=== PATIENT | female | born 1980 | race Caucasian/White ===

== ENCOUNTER 2017-06-07 13:16 | Emergency (ER) | payer MEDICAID, SELFPAY ==
[2017-06-07 13:19] VITALS: BP 121/77; PULSE 75; RESP 16; TEMP 36.2; O2SAT 100; BMI 59.4
--- NOTE | 2017-06-07 14:01 | RAD_ITS ---
STUDY: X-RAY CHEST REASON FOR EXAM: Female, 36 years old. Shortness of breath. Dyspnea. Stage IV cervical cancer and metastases to bone. TECHNIQUE: AP upright portable view. COMPARISON: None. FINDINGS: The lungs are clear and expanded. There is no demonstrated pleural abnormality. Normal size heart. Normal mediastinum and cristóbal. Normal visualized pulmonary arteries. Normal visualized aortic arch and descending thoracic aorta. Right lateral marginal spurring along the thoracic spine. Normal visualized ribs, clavicles, and shoulders. There is no demonstrated abnormality of the visualized soft tissue structures of the upper abdomen. RAD/Chest 1 View (Portable) IMPRESSION: No acute cardiopulmonary pathology. Electronically Signed: Rakan Sheriff MD at 15:24 EST , Service support ,
--- NOTE | 2017-06-07 14:01 | CT_ITS ---
STUDY: CT BRAIN WITHOUT CONTRAST REASON FOR EXAM: Female, 36 years old. Headache with stage IV cervical cancer. RADIATION DOSAGE (If Supplied By Facility): CTDIvol = ( 44.99 ) mGy, DLP = ( 779.24 ) mGycm TECHNIQUE: Transaxial CT imaging of the brain was performed without administration of intravenous contrast material. Coronal and sagittal reconstructions were also performed. Individualized dose optimization techniques were used for this CT. COMPARISON: None. FINDINGS: Normal soft tissue structures. Normal calvarium. Extensive vasogenic edema in the left frontal lobe white matter secondary to a probable 3.3 cm intra-axial mass in the left frontal lobe convexity. This is causing 7.4 mm [id number] midline shift. No other suspicious areas of vasogenic edema. Normal basal ganglia and thalami. Normal brainstem. Normal cerebellum. There is no intracranial hemorrhage. There are no findings of an acute ischemic infarction. Normal visualized paranasal sinuses. CT/Brain/Head without Contrast IMPRESSION: 1. Extensive vasogenic edema in the left frontal white matter is most likely secondary to at least 1 brain mass in the left frontal lobe convexity causing 7.4 mm [id number] midline shift. Solitary brain metastatic mass versus primary malignant brain neoplasm. Contrast CT or MRI of the brain with contrast will help. 2. No CT evidence of intracranial bleeding or acute ischemic infarct. Electronically Signed: Rakan Sheriff MD at 15:07 EST , Service support ,
--- NOTE | 2017-06-07 14:05 | ED.VISSUMM ---
- ER Visit Summary Date of Service: 06/07/17 Chief Complaint: [] Headache for about 2 weeks history of metastatic cervical cancer History of Present Illness: The patient is a 36 F [] static cervical cancer, she has metastasis to her anterior abdominal lymph nodes she reports, and lungs she completed chemotherapy and radiation therapy a few months ago her med port was removed she was told her cancer was stable not cured and she would need continued monitoring. For the last 2 weeks she has had intermittent frontal type headaches that come and go she has had no fever no cough no rhinorrhea she is not prone to headaches she has had no loss of function no change in mental status, she is scheduled to see her oncologist Dr. vora tomorrow and she was instructed to come to the emergency department. She is eating and drinking without difficulty her bowel bladder habits have been unremarkable neurologic function has been stable unchanged Physical Examination: [] Resting cupping the bed she is in no distress she is awake and alert sitting in a brightly lit room her neck is very supple HEENT exam is unremarkable cranial nerves are normal the lungs are diminished heart tones are distant abdomen is very obese but soft nontender upper lower extremities are generally unremarkable she is moving all 4 extremities her neurologic exam showscranial nerve no motor no cerebellar or sensory or visual field abnormality Test Results: [] Emergency Department Course and Treatment: [] Right IV fluids therapy head CT screening labs The patient's head CT shows at least one lesion left frontal with about 7.5 mm of edema and shift no bleeding, the rest of the patient's labs are generally unremarkable Logically she remains awake and alert stable no neurologic abnormalities. I spoke with Dr. NATALI AGUDELO secondary social studies teacher for her oncologist we discussed the case in detail including the results of the CT, oncology felt she could safely be admitted to [facility] with MRI in the morning, consultation to oncology high-dose steroids and consultation to radiation therapy. I spoke with Dr. Cruz secondary social studies teacher for the hospitalist service, discussed the case with him in detail including my conversation with the oncologist who felt the patient could be managed at [facility] we did discuss the shift and the oncologist is aware, however Dr. Cruz he stated he did not feel the patient could be admitted to [facility], he refused to admit her to his service he recommended that the patient could be admitted directly by the oncologist or transfer to a tertiary care center. I discussed this with the patient they are agreeable to transfer to [facility] where they been seen in the past we will make those arrangements I did speak with the [facility] of the accept the patient in transfer to the service of Dr. Pedro Treatment Plan: [] Disposition: [] Transfer to [facility] Impression: [] Metastatic cervical cancer, left frontal brain mass likely metastasis with edema see above, transferred to [facility] This note was generated with [employer] dictation software. It may contain incorrect words, spelling, and punctuation that were not noted in review of the chart prior to signing ED Disposition - Plan for ED Patient: Chief Complaint: Headache Referrals: Gio Tubbs MD [Primary Care Provider] -
[2017-06-07] MEDS: proCHLORPERazine 10 MG/2 ML Vial IV (15:00)
[2017-06-07] MEDS: DiphenhydrAMINE 50 MG/ML Syringe 25 MG IV (15:00)
[2017-06-07 15:31] LABS: Anion Gap 10 (5-15); BUN 26 mg/dL (7-18); BUN/Creat Ratio 23.4 RATIO (10-20); Calcium,Total 9.3 mg/dL (8.5-10.1); Chloride 107 mmol/L (98-107); Creatinine, Serum 1.11 mg/dL (0.55-1.02); EST Glomerular Filtration Rate 59 mL/min (>60); Est Glom Filt Rate - Afr Amer 72 mL/min (>60); Estimated Creatinine Clearance 55.95 ml/min; Glucose 79 mg/dL (70-110); Potassium 4.3 mmol/L (3.5-5.1); Sodium Level 141 mmol/L (136-145)
[2017-06-07 15:48] LABS: Absolute Lymphocyte Count 1.49 X10^3/ul (0.83-4.51); Absolute Neutrophil Count 7.3 X10^3/uL (2.0-7.7); Basophil# 0.03 X10^3/uL; Basophil% 0.3 % (0-1); Eosinophil# 0.12 X10^3/uL; Eosinophils% 1.2 % (0-5); Hematocrit 37.6 % (37-47); Hemoglobin 11.9 g/dl (12.0-15.0); Lymphocyte # 1.49 X10^3/ul (4.0); Lymphocyte % 15.5 % (19-41); Mean Corp Hgb Conc 31.6 g/gl (32-36); Mean Corpuscular Hgb 26.9 pg (27.0-32.0); Mean Corpuscular Volume 84.9 fL (81-99); Mean Platelet Vol. 9.7 fl (6.2-12.0); Monocyte# 0.61 X10^3/uL; Monocyte% 6.3 % (0-10); Neutrophil # 7.34 X10^3/uL (2.7-7.7); Neutrophil % 76.4 % (47-70); Platelet Count 342 K/mm3 (150-450); RBC Distribution Width CV 16.4 % (11.6-14.6); RBC Distribution Width SD 51.4 fl (35.1-43.9); Red Blood Count 4.43 M/mm3 (4.2-5.4); White Blood Count 9.6 K/mm3 (4.4-11.0)
[2017-06-07 15:55] LABS: POSITIVE COUNT NO; POSITIVE DIFFERENTIAL NO; POSITIVE MORPHOLOGY NO
[2017-06-07 16:13] VITALS: BP 114/75; PULSE 74; RESP 14; O2SAT 97
--- NOTE | 2017-06-07 16:53 | ED.RN ---
Updated entire family on POC. Asked ED MD if she was appropriate for transport by private car and he agreed. Sister at bedside will be able to transport her down. Appropriate forms signed. Still pending room assignment at [facility]. PT and family aware that they will be waiting here until room assignment. PT and family agree. IV will remain in place for transport.
[2017-06-07 18:25] VITALS: BP 114/72; PULSE 76; RESP 14; TEMP 36.6; O2SAT 100
== END 2017-06-07 18:10 | disposition short-term general hospital (02) ==
LOC: ED 14:15
PROVIDERS: Emergency Provider Emergency Medicine; Family Provider Family Medicine; PCP Family Medicine
DX: C53.9 Malignant neoplasm of cervix uteri, unspecified (principal); G93.9 Disorder of brain, unspecified; G93.6 Cerebral edema; C77.2 Secondary and unspecified malignant neoplasm of intra-abdominal lymph nodes; C78.02 Secondary malignant neoplasm of left lung; C78.01 Secondary malignant neoplasm of right lung; R51 Headache; Z79.899 Other long term (current) drug therapy; Z92.3 Personal history of irradiation; Z92.21 Personal history of antineoplastic chemotherapy
CPT/HCPCS: 70450; 71045; 80048; 85025; 96374; 96375; 99284; J7050

== ENCOUNTER 2017-07-27 12:51 | Inpatient (IN) | payer MEDICAID, SELFPAY ==
[2017-07-27 12:52] VITALS: BP 162/106; PULSE 113; RESP 18; TEMP 36.1; O2SAT 97; BMI 60.0
[2017-07-27 13:05] VITALS: BP 110/82; PULSE 105; RESP 16; O2SAT 97
--- NOTE | 2017-07-27 13:11 | CT_ITS ---
STUDY: CT LUMBAR SPINE WITHOUT CONTRAST REASON FOR EXAM: Female, 37 years old. History of cervical carcinoma with bone metastasis. Low back pain and left hip pain. Recent fall. RADIATION DOSAGE (If Supplied By Facility): CTDIvol = ( 49.59 ) mGy, DLP = ( 2697.04 ) mGycm TECHNIQUE: The patient was scanned in a multi detector CT scanner. High resolution transaxial imaging was performed. Images were obtained from L1 to S1 level. Sagittal and coronal images were reconstructed. Individualized dose optimization techniques were used for this CT. COMPARISON: None FINDINGS: Normal lumbar lordosis. There is no substantial scoliosis. Normal vertebrae of the lumbar spine. L1-2: Mild degree of interspace narrowing and mild anterior spondylosis. L2-3: Normal endplates. Normal disc height and morphology. Normal bilateral facet joints. Normal central canal and bilateral lateral recesses. Normal bilateral intervertebral neural foramina. L3-4: Mild degree of disc space narrowing. Facet joint osteoarthritis and hypertrophy. L4-5: Normal endplates. Normal disc height and morphology. Normal bilateral facet joints. Normal central canal and bilateral lateral recesses. Normal bilateral intervertebral neural foramina. L5-S1: There is erosion of the transverse processes of the L5 vertebrae. There is evidence of soft tissue mass and destruction of the left iliac bone as well as the left sacral alar. CT/Spine Lumbar without Contrast IMPRESSION: Large soft tissue mass which is incompletely visualized causing destruction of the left iliac bone and partial destruction of the left sacral wing. Electronically Signed: Pro Chery MD at 14:48 EDT Tel [phone], Service support ,
--- NOTE | 2017-07-27 13:11 | VDLE_ITS ---
Reason For Study: LEG PAIN Procedure LEFT Exam performed portable in ED. GSV is normal. Technically limited/difficult due to body CFV is compressible, spontaneous, phasic, habitus. competent, and demonstrates normal A preliminary report was called and/or faxed augmentation. to Dr. Melo. FV is compressible, spontaneous, phasic, competent and demonstrates normal augmentation. POP V is compressible, spontaneous, phasic, competent and demonstrates normal augmentation. T/P Trunk is compressible. PTV is compressible. Interpretation Summary Deep veins of the left lower extremity are patent and compressible segmentally. There is no evidence of left lower extremity deep vein thrombosis. Valvular competence appears intact within the proximal deep venous system on the left . The left greater saphenous vein appears patent and compressible segmentally. Ordering Physician: Negrito Melo Performed By: Yelena Jones RVT
--- NOTE | 2017-07-27 13:15 | ED.DCSUM_ITS ---
- ER Visit Summary Date of Service: 07/27/17 Chief Complaint: Left knee pain/swelling, lower back pain History of Present Illness: The patient is a 37 F who presents with the above symptoms. This is been ongoing for 2 weeks. She had an injury of the left knee a couple weeks ago. She states that her left leg gave out at the hospital that she was out having a brain tumor removed. She continued to have pain so she went to another emergency department and had a negative x-ray and was told to take [place] and her home morphine. She continues to have pain and swelling of the left leg. She is unable to ambulate. She now has pain in the lower back. They stated that she does have some urinary incontinence. She has not had a fever. Tried calling for an outpatient MRI but this has not been scheduled yet. Has a history of ovarian cancer with bony metastases to the left hip and to the brain. They are here today because they want answers. Physical Examination: This is an obese female who weighs 150 kg. HEENT exam unremarkable. Heart is regular. Lungs are clear. Abdomen soft nontender. Back exam reveals lumbar spinal tenderness. Left leg exam reveals diffuse swelling. There is no knee tender to palpation. Skin is of normal color. Her neurologic exam is at baseline Test Results: Ultrasound reveals no DVT. CT of the lumbar spine reveals destruction of the left iliac wing from a metastases which is known to the patient Emergency Department Course and Treatment: She was treated with morphine here. Her imaging studies do not reveal anything acute. There is no evidence of any lumbar spine impingement. At this point the patient has no acute findings. I feel she can be discharged to home. However, she is concerned about this because of the amount of pain that she is having. I will speak with the social welfare research worker who will help her get a plan for home care. She has opiates at home for pain control. Treatment Plan: [] Disposition: Discharge, after social work evaluation Impression: Back pain, left leg pain, stage IV ovarian cancer, morbidly obese This note was generated with [employer] dictation software. It may contain incorrect words, spelling, and punctuation that were not noted in review of the chart prior to signing ED Disposition - Plan for ED Patient: Chief Complaint: Lower Extremity Injury Referrals: Gio Tubbs MD [Primary Care Provider] -
[2017-07-27] MEDS: morphine 8 MG/ML Syringe SC (13:24)
--- NOTE | 2017-07-27 15:25 | ED.DEP ---
ED Disposition - Plan for ED Patient: Disposition: Home or Assisted Living Chief Complaint: Lower Extremity Injury Instructions: ED Back Care Tips Referrals: Gio Tubbs MD [Primary Care Provider] -
--- NOTE | 2017-07-27 16:24 | CM.ED ---
Patient states that she is unable to ambulate, even with walker. Family states she uses a sheet cradle to lift her leg. Family states she has fallen four times in the past two weeks. According to the family, the patient is awaiting authorization from insurance to have an MRI ordered by her PCP and was told this could take a month. Family states home health would not be enough help and express concerns for patient's safety if discharged to home. Patient and family are agreeable with seeking temporary placement in a halfway home. CM informed patient and family that social media content specialist will meet with patient tomorrow and begin authorization process. ED care team updated. SW/CM will continue to follow for safe discharge planning.
[2017-07-27 16:45] VITALS: BMI 60.0
[2017-07-27 17:08] VITALS: BP 143/98; PULSE 98; RESP 20; O2SAT 95
--- NOTE | 2017-07-27 17:21 | PCM.HP.STD ---
<Tammie Villela - Last Filed: 07/27/17 17:41> Problem List (1) Cervical cancer Status: Chronic (2) Cervical cancer, FIGO stage IVB Status: Chronic (3) Hypoalbuminemia Status: Chronic (4) Hydronephrosis Status: Resolved (5) Brain metastases Status: Resolved (6) Depression Status: Chronic (7) Overactive bladder Status: Chronic History of Present Illness Date of Admission: 07/27/17 Chief Complaint: Left leg pain, inability to ambulate, frequent falls. The patient is a 37 year old F who presents to the emergency room due to left leg pain and swelling, back pain and unable to ambulate. Patient states she has fallen approximately 4 times in the past week due to left leg weakness. She is now unable to even lift left leg off of bed during assessment. Patient has had symptoms of weakness and left leg pain for months, however they have gotten worse in the past week. Patient is undergoing radiation for stage IV cervical cancer in which she was originally diagnoses about one year ago, her last radiation treatment was last , 07/23/2017. She sees Dr. Gross. Patient states she has metastasis to brain status post brain tumor removal at [facility], lung metastasis and questionable left hip. Patient's most recent PET scan was December 2016. Her other past medical history includes depression and recent diagnosis of overactive bladder. She states she has been incontinent of urine. She denies other associated complaints. Past Medical History Past Medical History (Chronic Problems): Chronic Problems (Last Updated 06/24/17 @ 13:17 by Armida Ortiz) Cervical cancer (Chronic) Cervical cancer, FIGO stage IVB (Chronic) Hypoalbuminemia (Chronic) Depression (Chronic) Overactive bladder (Chronic) Allergies No Known Allergies Allergy (Verified 07/27/17 12:54) Home Medications: Ambulatory Orders Medication Instructions Recorded Acetaminophen [Tylenol] 500 mg PO Q6H PRN PRN 05/19/17 Dexamethasone [Decadron] 4 mg PO BIDCM 07/27/17 Docusate Sodium [Dok] 100 mg PO DAILY 07/27/17 Hydrocodone/Acetaminophen [[place] 5 mg PO Q6H PRN PRN 07/27/17 5-325 Tablet] Mirabegron [Myrbetriq] 25 mg PO DAILY 07/27/17 Mirtazapine [Remeron] 15 mg PO QHS 07/27/17 Morphine Sulfate [Morphabond ER] 30 mg PO Q8H PRN PRN 07/27/17 Surgical History: - - Brain tumor resection, port placement and removal of port device. Psychiatric History: Depression SKIAGRAPHER History: cervical cancer Smoking Status: Never smoker Alcohol: None Drugs: None - *Family History Maternal History Items: Diabetes, - - ALS, questionable uterine mass which was not further investigated given advanced ALS. Paternal History Items: High Cholesterol, Hypertension Review of Systems Constitutional: Denies: Chills, Fever, Weight Change HEENT: Denies: Head Aches, Sinus Congestion, Sinus Drainage Cardiovascular: Denies: Chest Pain, Palpitations Respiratory: Denies: Cough, Shortness of breath at rest, Sputum production Gastrointestinal: Reports: Constipation. Denies: Abdominal Pain, Nausea, Vomiting Genitourinary: Reports: Incontinence. Denies: Dysuria, Hematuria Musculoskeletal: Reports: Back Pain, Leg Pain - Left Skin: Reports: Rash - groin, abdominal folds. Neurological: Reports: - - Numbness and weakness of LLE. Psychiatric: Reports: Depression Hematologic/ Lymphatic: Denies: Easy Bruising, Easy Bleeding VTE Information - Inpt Only VTE Present on Admission: No VTE Mechan Device Prophylaxis: None VTE Pharm Prophylaxis ordered?: Yes Patient Problems: Active and Suspected Problems (Last Updated 06/24/17 @ 13:17 by Armida Ortiz) Mass of pelvis (Acute) Left hip pain (Acute) - Physical Exam General: Alert, Oriented x3, Cooperative, No apparent distress HEENT: Atraumatic, PERRLA, EOMI, Normocephalic Neck: Supple, No JVD, Negative Carotid Bruits Lungs: Clear to auscultation, Diminished Cardiovascular: Regular rate, Regular Rhythm, Normal S1, Normal S2, No murmurs Abdomen: Bowel Sounds Present, Soft, Non Tender, Non-Distended, Obese Extremities: No clubbing, No cyanosis, Capillary Refill Less than 3 Seconds, Edema - LLE Skin: - - Erythema, yeast appearing rash abdominal/pannus folds. Musculoskeletal: Tenderness - LLE Neurological: Cranial nerves II-XII grossly intact, Neuro grossly intact Psych/Mental Status: Normal Affect, Appropriate Vital Signs Temp Pulse Resp BP Pulse Ox 96.9 F L 98 20 H 143/98 H 95 07/27/17 12:52 07/27/17 17:08 07/27/17 17:08 07/27/17 17:08 07/27/17 17:08 Oxygen Delivery Method Room Air Weight: 148.778 kg Body Mass Index (BMI) 60.0 Assessment/Plan Active and Suspected Problems (Last Updated 06/24/17 @ 13:17 by Armida Ortiz) Mass of pelvis (Acute) Left hip pain (Acute) 1. Left lower extremity weakness/pain, physical debility, frequent falls-Duplex US negative DVT LLE. Obtain CT of left hip. Patient reports questionable history of metastasis to left hip. Fall precautions. PT/OT. Continue home pain regimen PRN. CM working on SNF placement. 2. Stage IV cervical cancer-history of metastasis to brain, lungs and questionable left hip. Follows with Dr. Gross. Last radiation 07/23/17. Consult oncology. Continue home Decadron regimen. 3. Candidiasis of skin abdominal/groin folds- Nystatin powder. Keep areas clean and dry. 4. Overactive bladder-continue myrbetriq. 5. Depression-continue Remeron regimen. DVT [id number] Lovenox. This patient was seen by MIRIAN Kaufman under the supervision of Dr. Ram. <Adams Ram - Last Filed: 07/27/17 18:02> Problem List (1) Mass of pelvis Status: Acute (2) Left hip pain Status: Acute (3) Cervical cancer, FIGO stage IVB Status: Chronic (4) Hypoalbuminemia Status: Chronic (5) Depression Status: Chronic (6) Overactive bladder Status: Chronic History of Present Illness The patient is a 37 year old F presents with progressive weakness. Patient is having pain and difficulty lifting her left leg up. Patient was seen in the emergency room and MRI of her lumbar spine that showed limited view of the pelvic mass. Patient and family state pelvic mass is actually not a new thing but been chronic but apparently is getting bigger. He did do a duplex of lower extremities showed no DVT. Patient was evaluated by case management in the emergency room for facilitating placement but that is that there would not be able to facilitate anything today so patient is being brought under observation to have that facilitated. [] Past Medical History Allergies No Known Allergies Allergy (Verified 07/27/17 12:54) Surgical History: - Psychiatric History: Depression SKIAGRAPHER History: cervical cancer Smoking Status: Never smoker Alcohol: None Drugs: None - *Family History Maternal History Items: Diabetes, - Paternal History Items: High Cholesterol, Hypertension Review of Systems Constitutional: Denies: Chills, Fever, Weight Change HEENT: Denies: Head Aches, Sinus Congestion, Sinus Drainage Cardiovascular: Denies: Chest Pain Respiratory: Denies: Cough, Shortness of breath at rest, Sputum production Gastrointestinal: Reports: Constipation. Denies: Abdominal Pain, Nausea, Vomiting Genitourinary: Reports: Incontinence. Denies: Dysuria, Hematuria Musculoskeletal: Reports: Back Pain, Leg Pain Skin: Reports: Rash Neurological: Reports: - Psychiatric: Reports: Depression Hematologic/ Lymphatic: Denies: Easy Bruising, Easy Bleeding VTE Information - Inpt Only VTE Present on Admission: No VTE Mechan Device Prophylaxis: None VTE Pharm Prophylaxis ordered?: Yes - Physical Exam General: Alert, Oriented x3, Cooperative, No apparent distress HEENT: Atraumatic, Normocephalic Neck: Supple, No JVD, Negative Carotid Bruits Lungs: Clear to auscultation, Diminished Cardiovascular: Regular rate, Regular Rhythm, Normal S1, Normal S2, No murmurs Abdomen: Bowel Sounds Present, Soft, Non Tender, Non-Distended, Obese Extremities: No cyanosis Skin: - Musculoskeletal: No Muscle Wasting, Tenderness Neurological: - - Diminished sensation of the left lower extremity. Unable to actively flex the left hip. 5 out of 5 dorsiflexion of the great toe and 5 out of 5 plantar flexion of the left foot. Psych/Mental Status: Normal Affect, Appropriate Vital Signs Temp Pulse Resp BP Pulse Ox 36.1 C L 98 20 H 143/98 H 95 07/27/17 12:52 07/27/17 17:08 07/27/17 17:08 07/27/17 17:08 07/27/17 17:08 Oxygen Delivery Method Room Air Weight: 148.778 kg Body Mass Index (BMI) 60.0 Assessment/Plan Seen and examined independently. Agree with the above note by the nurse practitioner. 1. Left lower extremity weakness and pain Likely due to the pelvic mass. Pelvis pelvic mass is been present previously. Concerns have there is any nerve involvement given the patient's pain and inability to flex her left hip. Will check a CAT scan to better evaluate this. Optimize pain control Given the patient's pain and debility, patient will be seen by physical and Occupational Therapy. 2. Left pelvic mass In the pelvis itself. As above check a CAT scan. 3. Stage IV cervical cancer Patient's currently in between treatments at this time. Patient will need a follow-up with Dr. Gross Would not pursue any aggressive diagnosis of the pelvic mass as patient already has documented stage IV cervical cancer Further goals of care would need to be addressed through her oncologist. Code Visit OBSV E&M: 11937 Initial observation care L3
--- NOTE | 2017-07-27 17:31 | HP.PCM_ITS ---
<Tammie Villela - Last Filed: 07/27/17 17:41> Problem List (1) Cervical cancer Status: Chronic (2) Cervical cancer, FIGO stage IVB Status: Chronic (3) Hypoalbuminemia Status: Chronic (4) Hydronephrosis Status: Resolved (5) Brain metastases Status: Resolved (6) Depression Status: Chronic (7) Overactive bladder Status: Chronic History of Present Illness Date of Admission: 07/27/17 Chief Complaint: Left leg pain, inability to ambulate, frequent falls. The patient is a 37 year old F who presents to the emergency room due to left leg pain and swelling, back pain and unable to ambulate. Patient states she has fallen approximately 4 times in the past week due to left leg weakness. She is now unable to even lift left leg off of bed during assessment. Patient has had symptoms of weakness and left leg pain for months, however they have gotten worse in the past week. Patient is undergoing radiation for stage IV cervical cancer in which she was originally diagnoses about one year ago, her last radiation treatment was last , 07/23/2017. She sees Dr. Gross. Patient states she has metastasis to brain status post brain tumor removal at [facility], lung metastasis and questionable left hip. Patient's most recent PET scan was December 2016. Her other past medical history includes depression and recent diagnosis of overactive bladder. She states she has been incontinent of urine. She denies other associated complaints. Past Medical History Past Medical History (Chronic Problems): Chronic Problems (Last Updated 06/24/17 @ 13:17 by Armida Ortiz) Cervical cancer (Chronic) Cervical cancer, FIGO stage IVB (Chronic) Hypoalbuminemia (Chronic) Depression (Chronic) Overactive bladder (Chronic) Allergies No Known Allergies Allergy (Verified 07/27/17 12:54) Home Medications: Ambulatory Orders Medication Instructions Recorded Acetaminophen [Tylenol] 500 mg PO Q6H PRN PRN 05/19/17 Dexamethasone [Decadron] 4 mg PO BIDCM 07/27/17 Docusate Sodium [Dok] 100 mg PO DAILY 07/27/17 Hydrocodone/Acetaminophen [Roscoe 5 mg PO Q6H PRN PRN 07/27/17 5-325 Tablet] Mirabegron [Myrbetriq] 25 mg PO DAILY 07/27/17 Mirtazapine [Remeron] 15 mg PO QHS 07/27/17 Morphine Sulfate [Morphabond ER] 30 mg PO Q8H PRN PRN 07/27/17 Surgical History: - - Brain tumor resection, port placement and removal of port device. 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 Paternal History Items: High Cholesterol, Hypertension Review of Systems Constitutional: Denies: Chills, Fever, Weight Change HEENT: Denies: Head Aches, Sinus Congestion, Sinus Drainage Cardiovascular: Denies: Chest Pain, Palpitations Respiratory: Denies: Cough, Shortness of breath at rest, Sputum production Gastrointestinal: Reports: Constipation. Denies: Abdominal Pain, Nausea, Vomiting Genitourinary: Reports: Incontinence. Denies: Dysuria, Hematuria Musculoskeletal: Reports: Back Pain, Leg Pain - Left Skin: Reports: Rash - groin, abdominal folds. Neurological: Reports: - - Numbness and weakness of LLE. Psychiatric: Reports: Depression Hematologic/ Lymphatic: Denies: Easy Bruising, Easy Bleeding VTE Information - Inpt Only VTE Present on Admission: No VTE Mechan Device Prophylaxis: None VTE Pharm Prophylaxis ordered?: Yes Patient Problems: Active and Suspected Problems (Last Updated 06/24/17 @ 13:17 by Armida Ortiz) Mass of pelvis (Acute) Left hip pain (Acute) - Physical Exam General: Alert, Oriented x3, Cooperative, No apparent distress HEENT: Atraumatic, PERRLA, EOMI, Normocephalic Neck: Supple, No JVD, Negative Carotid Bruits Lungs: Clear to auscultation, Diminished Cardiovascular: Regular rate, Regular Rhythm, Normal S1, Normal S2, No murmurs Abdomen: Bowel Sounds Present, Soft, Non Tender, Non-Distended, Obese Extremities: No clubbing, No cyanosis, Capillary Refill Less than 3 Seconds, Edema - LLE Skin: - - Erythema, yeast appearing rash abdominal/pannus folds. Musculoskeletal: Tenderness - LLE Neurological: Cranial nerves II-XII grossly intact, Neuro grossly intact Psych/Mental Status: Normal Affect, Appropriate Vital Signs Temp Pulse Resp BP Pulse Ox 96.9 F L 98 20 H 143/98 H 95 07/27/17 12:52 07/27/17 17:08 07/27/17 17:08 07/27/17 17:08 07/27/17 17:08 Oxygen Delivery Method Room Air Weight: 148.778 kg Body Mass Index (BMI) 60.0 Assessment/Plan Active and Suspected Problems (Last Updated 06/24/17 @ 13:17 by Armida Ortiz) Mass of pelvis (Acute) Left hip pain (Acute) 1. Left lower extremity weakness/pain, physical debility, frequent falls- Duplex US negative DVT LLE. Obtain CT of left hip. Patient reports questionable history of metastasis to left hip. Fall precautions. PT/OT. Continue home pain regimen PRN. CM working on SNF placement. 2. Stage IV cervical cancer-history of metastasis to brain, lungs and questionable left hip. Follows with Dr. Gross. Last radiation 07/23/17. Consult oncology. Continue home Decadron regimen. 3. Candidiasis of skin abdominal/groin folds- Nystatin powder. Keep areas clean and dry. 4. Overactive bladder-continue myrbetriq. 5. Depression-continue Remeron regimen. DVT [id number] Lovenox. This patient was seen by MIRIAN Kaufman under the supervision of Dr. Ram. <Adams Ram - Last Filed: 07/27/17 18:02> Problem List (1) Mass of pelvis Status: Acute (2) Left hip pain Status: Acute (3) Cervical cancer, FIGO stage IVB Status: Chronic (4) Hypoalbuminemia Status: Chronic (5) Depression Status: Chronic (6) Overactive bladder Status: Chronic History of Present Illness The patient is a 37 year old F presents with progressive weakness. Patient is having pain and difficulty lifting her left leg up. Patient was seen in the emergency room and MRI of her lumbar spine that showed limited view of the pelvic mass. Patient and family state pelvic mass is actually not a new thing but been chronic but apparently is getting bigger. He did do a duplex of lower extremities showed no DVT. Patient was evaluated by case management in the emergency room for facilitating placement but that is that there would not be able to facilitate anything today so patient is being brought under observation to have that facilitated. 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 Denies: Abdominal Pain, Nausea, Vomiting Genitourinary: Reports: Incontinence. Denies: Dysuria, Hematuria Musculoskeletal: Reports: Back Pain, Leg Pain Skin: Reports: Rash Neurological: Reports: - Psychiatric: Reports: Depression Hematologic/ Lymphatic: Denies: Easy Bruising, Easy Bleeding VTE Information - Inpt Only VTE Present on Admission: No VTE Mechan Device Prophylaxis: None VTE Pharm Prophylaxis ordered?: Yes - Physical Exam General: Alert, Oriented x3, Cooperative, No apparent distress HEENT: Atraumatic, Normocephalic Neck: Supple, No JVD, Negative Carotid Bruits Lungs: Clear to auscultation, Diminished Cardiovascular: Regular rate, Regular Rhythm, Normal S1, Normal S2, No murmurs Abdomen: Bowel Sounds Present, Soft, Non Tender, Non-Distended, Obese Extremities: No cyanosis Skin: - Musculoskeletal: No Muscle Wasting, Tenderness Neurological: - - Diminished sensation of the left lower extremity. Unable to actively flex the left hip. 5 out of 5 dorsiflexion of the great toe and 5 out of 5 plantar flexion of the left foot. Psych/Mental Status: Normal Affect, Appropriate Vital Signs Temp Pulse Resp BP Pulse Ox 36.1 C L 98 20 H 143/98 H 95 07/27/17 12:52 07/27/17 17:08 07/27/17 17:08 07/27/17 17:08 07/27/17 17:08 Oxygen Delivery Method Room Air Weight: 148.778 kg Body Mass Index (BMI) 60.0 Assessment/Plan Seen and examined independently. Agree with the above note by the nurse practitioner. 1. Left lower extremity weakness and pain * Likely due to the pelvic mass. Pelvis pelvic mass is been present previously. Concerns have there is any nerve involvement given the patient's pain and inability to flex her left hip. * Will check a CAT scan to better evaluate this. * Optimize pain control * Given the patient's pain and debility, patient will be seen by physical and Occupational Therapy. 2. Left pelvic mass * In the pelvis itself. * As above check a CAT scan. 3. Stage IV cervical cancer * Patient's currently in between treatments at this time. Patient will need a follow-up with Dr. Gross * Would not pursue any aggressive diagnosis of the pelvic mass as patient already has documented stage IV cervical cancer * Further goals of care would need to be addressed through her oncologist. Code Visit OBSV E&M: 20368 Initial observation care L3
[2017-07-27 18:33] VITALS: BMI 61.6
--- NOTE | 2017-07-27 18:33 | CT_ITS ---
STUDY: CT PELVIS WITHOUT CONTRAST REASON FOR EXAM: Female, 37 years old. Pelvic mass on spine CT. History of cervical cancer RADIATION DOSAGE (If Supplied By Facility): DLP = ( 790.62 ) mGycm TECHNIQUE: Transaxial imaging of the pelvis was performed with oral contrast, and without intravenous administration of contrast material. Individualized dose optimization techniques were used for this CT. COMPARISON: Lumbar spine CT dated 07/27/2017. CT abdomen and pelvis dated 04/13/2017. FINDINGS: Study limited by lack of contrast and patient body habitus. The visualized bowel demonstrates no evidence of obstruction. There is a small amount of pelvic free fluid. There is extensive lymphadenopathy in the left inguinal region, left common and external iliac regions and left para-aortic region. This is not well evaluated without contrast. The largest node is in the left inguinal region and measures 4.5 x 3.1 cm. Again noted is an expansile osseous mass in the left hemipelvis which measures approximately 7.7 x 5.0 cm. This is not significantly changed when compared with the prior exam. CT/Pelvis without IV Contrast IMPRESSION: Study limited by patient body habitus and lack of contrast. New extensive lymphadenopathy in the left iliac region, left periaortic region and left inguinal region. This is suspicious for neoplasm. No significant change in the expansile osseous mass in the left hemipelvis when compared with 04/13/2017. Electronically Signed: Kayden Lemos, at 19:28 EDT Tel , Service support ,
--- NOTE | 2017-07-27 18:42 | NURSING ---
cervical cancer with mets to the lung, bone, lymph, brain.. in Jun 2017 had surgery to remove cancer from the brain..
[2017-07-27 19:32] VITALS: BP 152/95; PULSE 105; RESP 18; TEMP 36.1; O2SAT 95
[2017-07-27] MEDS: Mirtazapine 15 MG Tablet PO (21:25)
[2017-07-28 04:00] VITALS: BP 121/81; PULSE 97; RESP 18; TEMP 36.4; O2SAT 94
--- NOTE | 2017-07-28 04:00 | NURSING ---
Bedside handoff received from SHON Frances.
[2017-07-28] MEDS: Nystatin Powder 15gm Bottle 1 APPLIC TOPICAL ×3 (05:43→22:38)
[2017-07-28 06:20] LABS: Absolute Lymphocyte Count 0.82 X10^3/ul (0.83-4.51); Absolute Neutrophil Count 28.9 X10^3/uL (2.0-7.7); Basophil# 0.04 X10^3/uL; Basophil% 0.1 % (0-1); Hematocrit 32.5 % (37-47); Lymphocyte # 0.82 X10^3/ul (4.0); Lymphocyte % 2.6 % (19-41); Mean Corp Hgb Conc 30.8 g/gl (32-36); Mean Corpuscular Hgb 25.5 pg (27.0-32.0); Mean Corpuscular Volume 82.9 fL (81-99); Mean Platelet Vol. 9.1 fl (6.2-12.0); Monocyte% 5.6 % (0-10); Neutrophil # 28.91 X10^3/uL (2.7-7.7); RBC Distribution Width CV 17.3 % (11.6-14.6); Red Blood Count 3.92 M/mm3 (4.2-5.4)
[2017-07-28 06:24] LABS: Differential Indicated SCAN CRITERIA MET; POSITIVE COUNT YES; POSITIVE DIFFERENTIAL YES; POSITIVE MORPHOLOGY NO; Platelet Count 808 K/mm3 (150-450); White Blood Count 32.1 K/mm3 (4.4-11.0)
[2017-07-28 06:36] LABS: Anion Gap 12 (5-15); BUN 121 mg/dL (7-18); BUN/Creat Ratio 18.7 RATIO (10-20); Calcium,Total 9.1 mg/dL (8.5-10.1); Chloride 104 mmol/L (98-107); Creatinine, Serum 6.46 mg/dL (0.55-1.02); EST Glomerular Filtration Rate 8 mL/min (>60); Est Glom Filt Rate - Afr Amer 9 mL/min (>60); Estimated Creatinine Clearance 9.52 ml/min; Glucose 103 mg/dL (74-106); Potassium 6.2 mmol/L (3.5-5.1); Sodium Level 135 mmol/L (136-145)
[2017-07-28 06:37] LABS: Differential Comment SCANNED; Platelet Estimate MOD INC (ADEQ)
[2017-07-28 09:00] VITALS: BP 127/81; PULSE 107; RESP 16; TEMP 36.4; O2SAT 95
[2017-07-28] MEDS: Mirabegron 25 MG TAB.ER.24H PO (09:06)
[2017-07-28] MEDS: Sodium Polystyrene Sulfonate 15 GM/60 ML UDC PO (09:07)
[2017-07-28] MEDS: Enoxaparin 40 MG/0.4 ML Syringe SC (09:11)
--- NOTE | 2017-07-28 11:20 | CASEMGMT ---
Social Work Note Face to face with pt to discuss discharge plan. Introduced self and role at [facility]. Pt on bedpan and contacted KETTLE OPERATOR for assistance. Requested SW return at later time. Tammie Cifuentes, BOARD FILLER, SUPPORT GROUP MANAGER
--- NOTE | 2017-07-28 13:03 | PN_ITS ---
<Tammie Villela - Last Filed: 07/28/17 13:03> Patient Problems: Active and Suspected Problems (Last Updated 06/24/17 @ 13:17 by Armida Ortiz) Mass of pelvis (Acute) Left hip pain (Acute) Subjective: Patient seen and examined. Complains of increased pain this morning after nursing staff helped patient onto bedpan. She denies other complaints. Plan for pre-CERT to SNF. - Physical Exam General: Alert, Oriented x3, Cooperative, No apparent distress HEENT: Atraumatic, PERRLA, EOMI, Normocephalic Neck: Supple, No JVD, Negative Carotid Bruits Lungs: Clear to auscultation, Diminished Cardiovascular: Regular rate, Regular Rhythm, Normal S1, Normal S2, No murmurs Abdomen: Bowel Sounds Present, Soft, Non Tender, Non-Distended, Obese Extremities: No clubbing, No cyanosis, Edema - BLLE Skin: - - Erythema, yeast appearing rash abdominal/pannus folds. Musculoskeletal: No Tenderness to Palpation of Joints or Extremities Neurological: Cranial nerves II-XII grossly intact, Neuro grossly intact Psych/Mental Status: Normal Affect, Appropriate Vital Signs Temp Pulse Resp BP Pulse Ox 97.5 F L 107 H 16 127/81 H 95 07/28/17 09:00 07/28/17 09:00 07/28/17 09:00 07/28/17 09:00 07/28/17 09:00 Oxygen Delivery Method Room Air Weight: 152.8 kg Body Mass Index (BMI) 61.6 Intake and Output for Last 24 Hours 07/26/17 07/27/17 07/28/17 23:59 23:59 23:59 Intake Total 1450 / 1450 Balance 1450 / 1450 Laboratory Tests Past 24 Hrs 07/28/17 07/28/17 05:15 05:15 WBC 32.1 H* RBC 3.92 L Hgb 10.0 L Hct 32.5 L MCV 82.9 MCH 25.5 L MCHC 30.8 L RDW 17.3 H RDW Differential 52.0 H Plt Count 808 H* MPV 9.1 Immature Gran % (Auto) 1.700 H Neut % (Auto) 90.0 H Lymph % (Auto) 2.6 L Caswell % (Auto) 5.6 Eos % (Auto) 0.0 Baso % (Auto) 0.1 Absolute Neuts (auto) 28.9 H Absolute Lymphs (auto) 0.82 L Total Counted Not Reportable Differential Comment SCANNED Diff Path Review May foll Platelet Estimate MOD INC Sodium 135 L Potassium 6.2 H* Chloride 104 Carbon Dioxide 19.0 L Anion Gap 12 BUN 121 H* Creatinine 6.46 H Estim Creat Clear Calc 9.52 Est GFR (MDRD) Af Amer 9 L Est GFR (MDRD) Non-Af 8 L BUN/Creatinine Ratio 18.7 Glucose 103 Calcium 9.1 Medical Necessity - Tobacco Use Smoking Status: Never smoker Assessment/Plan Active and Suspected Problems (Last Updated 06/24/17 @ 13:17 by Armida Ortiz) Mass of pelvis (Acute) Left hip pain (Acute) 1. Left lower extremity weakness/pain, physical debility, frequent falls- Duplex US negative DVT LLE. CT of pelvis showed new extensive lymphadenopathy in the left iliac region, left periaortic region and left inguinal region. Suspicious for neoplasm. No significant change in the expansile osseous mass in the left hemipelvis when compared to 04/23/2017 imaging. Fall precautions. PT/OT. Continue as needed pain regimen. Patient's oncologist consulted. SNF at discharge, pending pre-CERT. 2. Stage IV cervical cancer-history of metastasis to brain, lungs and questionable left hip. Follows with Dr. Gross. Last radiation 07/23/17. Consult oncology. Continue home Decadron regimen. 3. Candidiasis of skin abdominal/groin folds- Nystatin powder. Keep areas clean and dry. 4. Overactive bladder-continue myrbetriq. 5. Depression-continue Remeron regimen. 6. Thrombocytosis-platelets 808. Suspect secondary to malignancy. Monitor CBC. 7. Leukocytosis-suspected secondary to Decadron/malignancy. Continue to monitor. 8. Chronic normocytic anemia-stable. DVT prophylaxis-Lovenox subcu. Discharge planning: SNF pending pre-CERT. This patient was seen by MIRIAN Kaufman under the supervision of Dr. Vizcarra. <Kati Vizcarra - Last Filed: 07/28/17 15:18> - Physical Exam Vital Signs Temp Pulse Resp BP Pulse Ox 97.6 F L 99 20 H 158/99 H 95 07/28/17 13:12 07/28/17 13:12 07/28/17 13:12 07/28/17 13:12 07/28/17 13:12 Oxygen Delivery Method Room Air Weight: 152.8 kg Body Mass Index (BMI) 61.6 Intake and Output for Last 24 Hours 07/26/17 07/27/17 07/28/17 23:59 23:59 23:59 Intake Total 1450 / 1450 Balance 1450 / 1450 Laboratory Tests Past 24 Hrs 07/28/17 07/28/17 07/28/17 05:15 05:15 13:55 WBC 32.1 H* 34.8 H* RBC 3.92 L 4.03 L Hgb 10.0 L 10.1 L Hct 32.5 L 33.2 L MCV 82.9 82.4 MCH 25.5 L 25.1 L MCHC 30.8 L 30.4 L RDW 17.3 H 17.2 H RDW Differential 52.0 H 51.8 H Plt Count 808 H* 855 H* MPV 9.1 9.2 Immature Gran % (Auto) 1.700 H 2.100 H Neut % (Auto) 90.0 H 88.9 H Lymph % (Auto) 2.6 L 6.4 L Caswell % (Auto) 5.6 2.5 Eos % (Auto) 0.0 0.0 Baso % (Auto) 0.1 0.1 Absolute Neuts (auto) 28.9 H 30.9 H Absolute Lymphs (auto) 0.82 L 2.24 Total Counted Not Reportable Not Reportable Differential Comment SCANNED COMMENT Diff Path Review Reviewed May foll Platelet Estimate MOD INC Sodium 135 L Potassium 6.2 H* Chloride 104 Carbon Dioxide 19.0 L Anion Gap 12 BUN 121 H* Creatinine 6.46 H Estim Creat Clear Calc 9.52 Est GFR (MDRD) Af Amer 9 L Est GFR (MDRD) Non-Af 8 L BUN/Creatinine Ratio 18.7 Glucose 103 Calcium 9.1 07/28/17 13:55 WBC RBC Hgb Hct MCV MCH MCHC RDW RDW Differential Plt Count MPV Immature Gran % (Auto) Neut % (Auto) Lymph % (Auto) Caswell % (Auto) Eos % (Auto) Baso % (Auto) Absolute Neuts (auto) Absolute Lymphs (auto) Total Counted Differential Comment Diff Path Review Platelet Estimate Sodium 136 Potassium 6.0 H* Chloride 104 Carbon Dioxide 19.0 L Anion Gap 13 BUN 128 H* Creatinine 6.92 H Estim Creat Clear Calc 8.89 Est GFR (MDRD) Af Amer 9 L Est GFR (MDRD) Non-Af 7 L BUN/Creatinine Ratio 18.5 Glucose 126 H Calcium 9.2 Medical Necessity - Tobacco Use Smoking Status: Never smoker Assessment/Plan Patient was seen and examined independently. She complains of pain in the left leg. History of stage IV cervical cancer with metastasis to the brain, lungs and left hip. Patient recently had brain surgery with radiation to a month ago.. Patient's labs this morning showed hyperkalemia with acute kidney injury. She is being treated with isolated 15 mg p.o. ?1, repeat Kayexalate given this morning, repeat potassium is 6.0 which slightly worsening creatinine of 6.96. Nephrology consulted. 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 Will follow-up on that ultrasound of the kidneys, would get radiologist superintendent concrete mixing plant to the repeat abdominal CT to assess for hydronephrosis. Repeat blood work in a couple of hours Code Visit Inpatient E&M: 63963 Subs Hosp L3
[2017-07-28 13:12] VITALS: BP 158/99; PULSE 99; RESP 20; TEMP 36.4; O2SAT 95
--- NOTE | 2017-07-28 13:23 | CASEMGMT ---
Social Work Note Call from Marisa at [facility] stating that they can accept and will initiate pre-cert. Pt and family updated. SW to continue to follow and assist as needed. Plan: [facility] pending pre-[facility]. Tammie Cifuentes, TECHNICAL MARKETING ENGINEER, CANDY BAR ATTENDANT
--- NOTE | 2017-07-28 13:45 | US_ITS ---
STUDY: RENAL ULTRASOUND - COMPLETE REASON FOR EXAM: Female, 37 years old. Renal insufficiency. TECHNIQUE: Ultrasound evaluation of the kidneys was performed with real-time and static mayer-scale imaging. COMPARISON: CT dated 04/13/2017. FINDINGS: This study is limited by patient body habitus. RIGHT KIDNEY: Normal location of the right kidney, which is normal in size. The right kidney measures 11.8 cm. There is a normal cortex of the right kidney. There is no right renal mass or cyst. There are no right renal calculi. There is mild right hydronephrosis. DISTAL RIGHT URETER: There is non-visualization of the distal right ureter. There is no demonstrated right ureterovesical junction calculus. There is a visualized right ureteral jet. LEFT KIDNEY: Normal location of the left kidney, which is normal in size. The left kidney measures 12.4 cm. There is a normal cortex of the left kidney. There is no left renal mass or cyst. There are no left renal calculi. There is moderate hydronephrosis of the left kidney. DISTAL LEFT URETER: There is non-visualization of the distal left ureter. There is no demonstrated left ureterovesical junction calculus. There is a visualized left ureteral jet. BLADDER: The urinary bladder is partially distended and appears unremarkable. US/Kidney and Bladder IMPRESSION: Study limited by patient body habitus. Mild right hydronephrosis and moderate left hydronephrosis with no cause identified on this study. Electronically Signed: Kayden Lemos, at 16:18 EDT Tel , Service support ,
[2017-07-28] MEDS: 0.9% Normal Saline 1,000 ML 100 ML IV (13:52)
[2017-07-28 14:02] LABS: Pathologist Review Reviewed
[2017-07-28 14:21] LABS: Absolute Lymphocyte Count 2.24 X10^3/ul (0.83-4.51); Absolute Neutrophil Count 30.9 X10^3/uL (2.0-7.7); Basophil# 0.04 X10^3/uL; Basophil% 0.1 % (0-1); Hematocrit 33.2 % (37-47); Hemoglobin 10.1 g/dl (12.0-15.0); Lymphocyte # 2.24 X10^3/ul (4.0); Lymphocyte % 6.4 % (19-41); Mean Corp Hgb Conc 30.4 g/gl (32-36); Mean Corpuscular Hgb 25.1 pg (27.0-32.0); Mean Corpuscular Volume 82.4 fL (81-99); Mean Platelet Vol. 9.2 fl (6.2-12.0); Monocyte# 0.88 X10^3/uL; Monocyte% 2.5 % (0-10); Neutrophil % 88.9 % (47-70); RBC Distribution Width CV 17.2 % (11.6-14.6); RBC Distribution Width SD 51.8 fl (35.1-43.9); Red Blood Count 4.03 M/mm3 (4.2-5.4)
[2017-07-28 14:24] LABS: Differential Indicated SCAN CRITERIA MET; POSITIVE COUNT YES; POSITIVE DIFFERENTIAL YES; POSITIVE MORPHOLOGY YES; Platelet Count 855 K/mm3 (150-450); White Blood Count 34.8 K/mm3 (4.4-11.0)
[2017-07-28 14:38] LABS: Anion Gap 13 (5-15); BUN 128 mg/dL (7-18); BUN/Creat Ratio 18.5 RATIO (10-20); Calcium,Total 9.2 mg/dL (8.5-10.1); Chloride 104 mmol/L (98-107); Creatinine, Serum 6.92 mg/dL (0.55-1.02); EST Glomerular Filtration Rate 7 mL/min (>60); Est Glom Filt Rate - Afr Amer 9 mL/min (>60); Estimated Creatinine Clearance 8.89 ml/min; Glucose 126 mg/dL (74-106); Sodium Level 136 mmol/L (136-145)
--- NOTE | 2017-07-28 15:12 | PCM.CONS.R ---
Consultation - Renal 07/28/17 PCP/ Referring MD: Requesting physician: Kati Vázquez MD Primary care physician: Cal Tubbs MD Reason for Consultation:: URI, hyperkalemia - History of Present Illness History of Present Illness: The patient is a 37 year old morbidly obese F who presents to the emergency room due to worsening left leg pain and swelling, back pain and difficulty with ambulation. Patient states she has fallen at home due to left leg weakness and pain. She is not able to left her leg and swelling is worse. Swelling started prior to starting decadron. She was evaluated few weeks ago in [place] ER and had xrays of her leg done that was negative for fracture and sent home. Patient has history of cervical cancer diagnosed by polypectomy of cervix in [place] 2016 after presenting with abnormal vaginal bleeding. She was seen in ER in November [address] abdomen done in [place] showed metastasis to bone, pelvis, lung and recently to the brain. She underwent chemotherapy and radiation of cervix last treatment in December 2016 managed by [facility] cancer center. She had three rounds of radiation, last treatment one week ago 07/23 for brain mets following resection of tumor 06/11/17. She is followed by Dr. Gross in [facility]. She had a CT abdomen in April 2017 that showed left hydroureter. She was seen by Dr. Chavez in [place]. No intervention was done. She complains of urinary frequency, incontinence, hesitancy. She has low urinary volumes each time she urinates. She has urge to urinate but has trouble emptying her bladder. She was started on Myrbetriq by urology for what was thought to be overactive bladder. She complains of constipation. She denied any nausea, vomiting. Appetite has been poor. She has been on steroids which helps with her appetite. She complains of chronic fatigue. Labs on admit showed pt in acute renal failure with Creatinine at 6.4 to 6.92 today. Potassium elevated at 6.2 given kayexalate. Attempts to place jefferson made but unsuccessful by nursing. Creatinine in May 2017 was 1.1. WBC elevated at 34K. CT pelvis and lumbar spine w/o iv contrast showed lymphadenopathy, pelvic mass, bony destruction of left iliac and sacrum. CT abdomen ordered stat. Venous US LLE negative for DVT. - Allergies Allergies: Allergies No Known Allergies Allergy (Verified 07/27/17 12:54) - Current Medications Current Medications: Current Medications Acetaminophen (Tylenol) 500 mg PO Q6H PRN PRN PRN Reason: PAIN Hydrocodone Bitart/Acetaminophen ([place] 5mg-325mg) 1 tablet PO Q6H PRN PRN PRN Reason: PAIN Dexamethasone (Decadron) 4 mg PO BIDCM [facility] Last Admin: 07/28/17 09:06 Dose: 4 mg Docusate Sodium (Colace) 100 mg PO DAILY [facility] Last Admin: 07/28/17 09:08 Dose: Not Given Enoxaparin Sodium (Lovenox) 40 mg SC DAILY@1000 ONEYDA Last Admin: 07/28/17 09:11 Dose: 40 mg Sodium Chloride () 1,000 mls @ 100 mls/hr IV .Q10H [facility] Last Admin: 07/28/17 13:52 Dose: 100 mls/hr Magnesium Hydroxide (Milk Of Magnesia) 30 ml PO DAILY PRN PRN PRN Reason: Constipation Mirtazapine (Remeron) 15 mg PO QHS [facility] Last Admin: 07/27/17 21:25 Dose: 15 mg Morphine Sulfate () 2 - 4 mg IV Q4H PRN PRN PRN Reason: MOD-SEVERE PAIN (4-10/10) Morphine Sulfate (Ms Contin) 30 mg PO Q8H PRN PRN PRN Reason: PAIN Last Admin: 07/28/17 09:05 Dose: 30 mg Morphine Sulfate () 2 - 4 mg IV Q4H PRN PRN PRN Reason: MOD-SEVERE PAIN (4-10/10) Last Admin: 07/28/17 13:19 Dose: 4 mg Nystatin (Mycostatin Powder) 1 applic TOPICAL TID [facility] PRN Reason: Protocol Last Admin: 07/28/17 13:53 Dose: 1 applicatio - Past Medical History Past Medical History (Chronic Problems): Chronic Problems (Last Updated 06/24/17 @ 13:17 by Armida Ortiz) Cervical cancer (Chronic) Cervical cancer, FIGO stage IVB (Chronic) Hypoalbuminemia (Chronic) Depression (Chronic) Overactive bladder (Chronic) - Past Surgical History Surgical History: - - craniotomy, brain tumor resection 06/11/17 - Social History Smoking Status: Never smoker Alcohol: None Drugs: None - Family History Maternal Family History: Family History (Last Updated 07/28/17 @ 20:07 by Barby Duarte DO) Father Anxiety Arthritis Depression Hyperlipidemia Hypertension Mother Diabetes Grandfather Cancer Grandmother Cancer History Items: Diabetes, - Paternal Family History: Family History (Last Updated 07/28/17 @ 20:07 by Braby Duarte DO) Father Anxiety Arthritis Depression Hyperlipidemia Hypertension Mother Diabetes Grandfather Cancer Grandmother Cancer History Items: High Cholesterol, Hypertension grandparents Family History: Family History (Last Updated 07/28/17 @ 20:07 by Barby Duarte DO) Father Anxiety Arthritis Depression Hyperlipidemia Hypertension Mother Diabetes Grandfather Cancer Grandmother Cancer Review of Systems Constitutional: Reports: Anorexia, Weakness, Fatigue. Denies: Chills, Fever Eyes: Reports: - - brain tumor resection 06/11/17. Denies: Blurred vision, Vision Change HEENT: Denies: Head Aches Cardiovascular: Reports: Edema - LLE. Denies: Chest Pain, Light Headedness, Palpitations, Syncope Respiratory: Denies: Cough, Shortness of Breath Gastrointestinal: Reports: Constipation, - - decreased appetite. Denies: Abdominal Pain, Diarrhea, Nausea, Vomiting Genitourinary: Reports: Frequency, Hesitancy, Incontinence, Retention, Urgency. Denies: Dysuria, Hematuria Gynecological: Reports: - - cervical cancer with mets Musculoskeletal: Reports: Back Pain, Leg Pain - left, - - LLE swelling, - - bone mets Skin: Denies: Rash Neurological: Reports: Balance problems - leg pain, - - brain tumor. Denies: Tremor, Seizures Psychiatric: Denies: Anxiety, Depression Hematologic/ Lymphatic: Reports: Adenopathy, Anemia. Denies: Hx of blood clot Patient Problems: Active and Suspected Problems (Last Updated 06/24/17 @ 13:17 by Armida Ortiz) Mass of pelvis (Acute) Left hip pain (Acute) Bilateral hydronephrosis (Acute) - Physical Exam General: Alert, Oriented x3, Cooperative, No apparent distress, - - morbidly obese HEENT: PERRLA, EOMI Oral: Dry Mucosa Neck: Supple, No JVD Lungs: Clear to auscultation Cardiovascular: Regular rate, No rub noted Abdomen: Bowel Sounds Present, Soft, Non Tender, Non-Distended, Obese Extremities: Edema - L>R Skin: - - intertrigo in skin folds, groin area bilaterally Musculoskeletal: No Muscle Wasting Neurological: Cranial nerves II-XII grossly intact, - - no tremor, no asterixis Psych/Mental Status: Normal Affect, Appropriate, Alert and oriented to time, place, person, mood and affect Vital Signs Temp Pulse Resp BP Pulse Ox 97.6 F L 99 20 H 158/99 H 95 07/28/17 13:12 07/28/17 13:12 07/28/17 13:12 07/28/17 13:12 07/28/17 13:12 Oxygen Delivery Method Room Air Weight: 152.8 kg Body Mass Index (BMI) 61.6 Intake and Output for Last 24 Hours 07/26/17 07/27/17 07/28/17 23:59 23:59 23:59 Intake Total 1450 / 1450 Balance 1450 / 1450 Laboratory Tests Past 24 Hrs 07/28/17 07/28/17 07/28/17 05:15 05:15 13:55 WBC 32.1 H* 34.8 H* RBC 3.92 L 4.03 L Hgb 10.0 L 10.1 L Hct 32.5 L 33.2 L MCV 82.9 82.4 MCH 25.5 L 25.1 L MCHC 30.8 L 30.4 L RDW 17.3 H 17.2 H RDW Differential 52.0 H 51.8 H Plt Count 808 H* 855 H* MPV 9.1 9.2 Immature Gran % (Auto) 1.700 H 2.100 H Neut % (Auto) 90.0 H 88.9 H Lymph % (Auto) 2.6 L 6.4 L [place] % (Auto) 5.6 2.5 Eos % (Auto) 0.0 0.0 Baso % (Auto) 0.1 0.1 Absolute Neuts (auto) 28.9 H 30.9 H Absolute Lymphs (auto) 0.82 L 2.24 Total Counted Not Reportable Not Reportable Differential Comment SCANNED COMMENT Diff Path Review Reviewed May foll Platelet Estimate MOD INC Sodium 135 L Potassium 6.2 H* Chloride 104 Carbon Dioxide 19.0 L Anion Gap 12 BUN 121 H* Creatinine 6.46 H Estim Creat Clear Calc 9.52 Est GFR (MDRD) Af Amer 9 L Est GFR (MDRD) Non-Af 8 L BUN/Creatinine Ratio 18.7 Glucose 103 Calcium 9.1 07/28/17 13:55 WBC RBC Hgb Hct MCV MCH MCHC RDW RDW Differential Plt Count MPV Immature Gran % (Auto) Neut % (Auto) Lymph % (Auto) [place] % (Auto) Eos % (Auto) Baso % (Auto) Absolute Neuts (auto) Absolute Lymphs (auto) Total Counted Differential Comment Diff Path Review Platelet Estimate Sodium 136 Potassium 6.0 H* Chloride 104 Carbon Dioxide 19.0 L Anion Gap 13 BUN 128 H* Creatinine 6.92 H Estim Creat Clear Calc 8.89 Est GFR (MDRD) Af Amer 9 L Est GFR (MDRD) Non-Af 7 L BUN/Creatinine Ratio 18.5 Glucose 126 H Calcium 9.2 Clinical Impression(s) from Imaging Studies Lumbar Spine CT 07/27/17 13:11 IMPRESSION: Large soft tissue mass which is incompletely visualized causing destruction of the left iliac bone and partial destruction of the left sacral wing. Electronically Signed: Pro Chery MD at 14:48 EDT Tel [phone], Service support , Pelvis CT 07/27/17 18:33 IMPRESSION: Study limited by patient body habitus and lack of contrast. New extensive lymphadenopathy in the left iliac region, left periaortic region and left inguinal region. This is suspicious for neoplasm. No significant change in the expansile osseous mass in the left hemipelvis when compared with 04/13/2017. Electronically Signed: Kayden Lemos, at 19:28 EDT Tel , Service support , Assessment/Plan Active and Suspected Problems (Last Updated 06/24/17 @ 13:17 by Armida Ortiz) Mass of pelvis (Acute) Left hip pain (Acute) Bilateral hydronephrosis (Acute) 1. Acute renal failure suspect due to obstructive uropathy with history of radiation, chemotherapy in 2017 for cervical cancer with mets. Radiation therapy for brain tumor, last tx 1 wk ago. Creatinine 6.2 on admission with baseline creatinine 1.[address] abdomen and in April 2017 showed left hydronephrosis. Renal US today showed persistent moderate left hydronephrosis with hydroureter and mild rt hydro. Consult urology for nephrostomy tubes or ureteral stents. Place Jefferson to CD to rule out lower tract obstruction DANIEL. Discussed with the patient and her father at the bedside that she may require dialysis if her renal function does not improve with jefferson or ureteral stent. High BUN likely due to steroids. 2. Acute hyperkalemia due to renal failure, correct with Kayexalate. Needs to relieve obstruction. May need dialysis. 3. Cervical cancer with metastases to lungs and bones brain with recent brain tumor removal June 2017. Underwent chemotherapy and radiation for cervical cancer and recently completed course of radiation last dose 315. 4. Left lower extremity edema venous ultrasound negative for DVT. Suspect due to lymphatic obstruction. 5. Low back pain, left leg pain with swelling history of metastatic bone disease. 6. Discussed with hospitalist and radiologist. consult urology and oncology. 7. Leukocytosis unclear etiology. Hem/onc consult 8. Constipation. see orders
--- NOTE | 2017-07-28 15:13 | CT_ITS ---
STUDY: CT ABDOMEN WITHOUT CONTRAST REASON FOR EXAM: Female, 37 years old. Pain RADIATION DOSAGE (If Supplied By Facility): CTDIvol = ( 34.45 ) mGy, DLP = ( 1299.43 ) mGycm TECHNIQUE: Transaxial images were obtained without intravenous contrast, and without oral contrast. Sagittal and coronal images were reconstructed. Individualized dose optimization techniques were used for this CT. COMPARISON: Abdominal and pelvic CT dated 04/13/2017 FINDINGS: Study limited by patient body habitus, patient motion and lack of contrast. Additionally, please note that only the abdomen was imaged on this exam. Please see the pelvic CT dated 07/27/2017 for details regarding the pelvis. There are new pulmonary nodules at the lung bases with the largest measuring 3 cm in the left infrahilar region. The liver, spleen, pancreas and adrenal glands are grossly unremarkable. There are no calcified gallstones present. The visualized bowel demonstrates no evidence of obstruction. There is a large amount of stool in the colon, consistent with constipation. The aorta is normal in caliber. There is retroperitoneal lymphadenopathy with the largest node measuring 2.6 x 2.1 cm at the left common iliac level. This is new when compared with the prior exam. There is a destructive osseous lesion in the left iliac bone which was better evaluated on the pelvic CT. CT/Abdomen without IV Contrast IMPRESSION: Significantly limited study. New retroperitoneal lymphadenopathy which is suspicious for neoplasm. New pulmonary nodules at the lung bases with the largest measuring 3 cm in the left infrahilar region. This is highly suspicious for neoplasm. Further evaluation with a chest CT with contrast is recommended. The visualized bowel demonstrates no evidence of obstruction. Large amount stool in the colon, consistent with constipation. Electronically Signed: Kayden Lemos, at 17:16 EDT Tel , Service support ,
--- NOTE | 2017-07-28 15:25 | CON.PCM_ITS ---
Consultation - Renal 07/28/17 PCP/ Referring MD: Requesting physician: Kati Vázquez MD Primary care physician: Cal Tubbs MD Reason for Consultation:: URI, hyperkalemia - History of Present Illness History of Present Illness: The patient is a 37 year old morbidly obese F who presents to the emergency room due to worsening left leg pain and swelling, back pain and difficulty with ambulation. Patient states she has fallen at home due to left leg weakness and pain. She is not able to left her leg and swelling is worse. Swelling started prior to starting decadron. She was evaluated few weeks ago in [place] ER and had xrays of her leg done that was negative for fracture and sent home. Patient has history of cervical cancer diagnosed by polypectomy of cervix in [place] 2016 after presenting with abnormal vaginal bleeding. She was seen in ER in November [address] abdomen done in [place] showed metastasis to bone, pelvis, lung and recently to the brain. She underwent chemotherapy and radiation of cervix last treatment in December [address] [facility] cancer center. She had three rounds of radiation, last treatment one week ago 07/23 for brain mets following resection of tumor 06/11/17. She is followed by Dr. Gross in [facility]. She had a CT abdomen in April 2017 that showed left hydroureter. She was seen by Dr. Chavez in [place]. No intervention was done. She complains of urinary frequency, incontinence, hesitancy. She has low urinary volumes each time she urinates. She has urge to urinate but has trouble emptying her bladder. She was started on Myrbetriq by urology for what was thought to be overactive bladder. She complains of constipation. She denied any nausea, vomiting. Appetite has been poor. She has been on steroids which helps with her appetite. She complains of chronic fatigue. Labs on admit showed pt in acute renal failure with Creatinine at 6.4 to 6.92 today. Potassium elevated at 6.2 given kayexalate. Attempts to place jefferson made but unsuccessful by nursing. Creatinine in May 2017 was 1.1. WBC elevated at 34K. CT pelvis and lumbar spine w/o iv contrast showed lymphadenopathy, pelvic mass, bony destruction of left iliac and sacrum. CT abdomen ordered stat. Venous US LLE negative for DVT. - Allergies Allergies: Allergies No Known Allergies Allergy (Verified 07/27/17 12:54) - Current Medications Current Medications: Current Medications Acetaminophen (Tylenol) 500 mg PO Q6H PRN PRN PRN Reason: PAIN Hydrocodone Bitart/Acetaminophen ([place] 5mg-325mg) 1 tablet PO Q6H PRN PRN PRN Reason: PAIN Dexamethasone (Decadron) 4 mg PO BIDCM [facility] Last Admin: 07/28/17 09:06 Dose: 4 mg Docusate Sodium (Colace) 100 mg PO DAILY [facility] Last Admin: 07/28/17 09:08 Dose: Not Given Enoxaparin Sodium (Lovenox) 40 mg SC DAILY@1000 ONEYDA Last Admin: 07/28/17 09:11 Dose: 40 mg Sodium Chloride () 1,000 mls @ 100 mls/hr IV .Q10H [facility] Last Admin: 07/28/17 13:52 Dose: 100 mls/hr Magnesium Hydroxide (Milk Of Magnesia) 30 ml PO DAILY PRN PRN PRN Reason: Constipation Mirtazapine (Remeron) 15 mg PO QHS [facility] Last Admin: 07/27/17 21:25 Dose: 15 mg Morphine Sulfate () 2 - 4 mg IV Q4H PRN PRN PRN Reason: MOD-SEVERE PAIN (4-10/10) Morphine Sulfate (Ms Contin) 30 mg PO Q8H PRN PRN PRN Reason: PAIN Last Admin: 07/28/17 09:05 Dose: 30 mg Morphine Sulfate () 2 - 4 mg IV Q4H PRN PRN PRN Reason: MOD-SEVERE PAIN (4-10/10) Last Admin: 07/28/17 13:19 Dose: 4 mg Nystatin (Mycostatin Powder) 1 applic TOPICAL TID [facility] PRN Reason: Protocol Last Admin: 07/28/17 13:53 Dose: 1 applicatio - Past Medical History Past Medical History (Chronic Problems): Chronic Problems (Last Updated 06/24/17 @ 13:17 by Armida Ortiz) Cervical cancer (Chronic) Cervical cancer, FIGO stage IVB (Chronic) Hypoalbuminemia (Chronic) Depression (Chronic) Overactive bladder (Chronic) - Past Surgical History Surgical History: - - craniotomy, brain tumor resection 06/11/17 - Social History Smoking Status: Never smoker Alcohol: None Drugs: None - Family History Maternal Family History: Family History (Last Updated 07/28/17 @ 20:07 by Barby Duarte DO) Father Anxiety Arthritis Depression Hyperlipidemia Hypertension Mother Diabetes Grandfather Cancer Grandmother Cancer History Items: Diabetes, - Paternal Family History: Family History (Last Updated 07/28/17 @ 20:07 by Barby Duarte DO) Father Anxiety Arthritis Depression Hyperlipidemia Hypertension Mother Diabetes Grandfather Cancer Grandmother Cancer History Items: High Cholesterol, Hypertension grandparents Family History: Family History (Last Updated 07/28/17 @ 20:07 by Barby Duarte DO) Father Anxiety Arthritis Depression Hyperlipidemia Hypertension Mother Diabetes Grandfather Cancer Grandmother Cancer Review of Systems Constitutional: Reports: Anorexia, Weakness, Fatigue. Denies: Chills, Fever Eyes: Reports: - - brain tumor resection 06/11/17. Denies: Blurred vision, Vision Change HEENT: Denies: Head Aches Cardiovascular: Reports: Edema - LLE. Denies: Chest Pain, Light Headedness, Palpitations, Syncope Respiratory: Denies: Cough, Shortness of Breath Gastrointestinal: Reports: Constipation, - - decreased appetite. Denies: Abdominal Pain, Diarrhea, Nausea, Vomiting Genitourinary: Reports: Frequency, Hesitancy, Incontinence, Retention, Urgency. Denies: Dysuria, Hematuria Gynecological: Reports: - - cervical cancer with mets Musculoskeletal: Reports: Back Pain, Leg Pain - left, - - LLE swelling, - - bone mets Skin: Denies: Rash Neurological: Reports: Balance problems - leg pain, - - brain tumor. Denies: Tremor, Seizures Psychiatric: Denies: Anxiety, Depression Hematologic/ Lymphatic: Reports: Adenopathy, Anemia. Denies: Hx of blood clot Patient Problems: Active and Suspected Problems (Last Updated 06/24/17 @ 13:17 by Armida Ortiz) Mass of pelvis (Acute) Left hip pain (Acute) Bilateral hydronephrosis (Acute) - Physical Exam General: Alert, Oriented x3, Cooperative, No apparent distress, - - morbidly obese HEENT: PERRLA, EOMI Oral: Dry Mucosa Neck: Supple, No JVD Lungs: Clear to auscultation Cardiovascular: Regular rate, No rub noted Abdomen: Bowel Sounds Present, Soft, Non Tender, Non-Distended, Obese Extremities: Edema - L>R Skin: - - intertrigo in skin folds, groin area bilaterally Musculoskeletal: No Muscle Wasting Neurological: Cranial nerves II-XII grossly intact, - - no tremor, no asterixis Psych/Mental Status: Normal Affect, Appropriate, Alert and oriented to time, place, person, mood and affect Vital Signs Temp Pulse Resp BP Pulse Ox 97.6 F L 99 20 H 158/99 H 95 07/28/17 13:12 07/28/17 13:12 07/28/17 13:12 07/28/17 13:12 07/28/17 13:12 Oxygen Delivery Method Room Air Weight: 152.8 kg Body Mass Index (BMI) 61.6 Intake and Output for Last 24 Hours 07/26/17 07/27/17 07/28/17 23:59 23:59 23:59 Intake Total 1450 / 1450 Balance 1450 / 1450 Laboratory Tests Past 24 Hrs 07/28/17 07/28/17 07/28/17 05:15 05:15 13:55 WBC 32.1 H* 34.8 H* RBC 3.92 L 4.03 L Hgb 10.0 L 10.1 L Hct 32.5 L 33.2 L MCV 82.9 82.4 MCH 25.5 L 25.1 L MCHC 30.8 L 30.4 L RDW 17.3 H 17.2 H RDW Differential 52.0 H 51.8 H Plt Count 808 H* 855 H* MPV 9.1 9.2 Immature Gran % (Auto) 1.700 H 2.100 H Neut % (Auto) 90.0 H 88.9 H Lymph % (Auto) 2.6 L 6.4 L [place] % (Auto) 5.6 2.5 Eos % (Auto) 0.0 0.0 Baso % (Auto) 0.1 0.1 Absolute Neuts (auto) 28.9 H 30.9 H Absolute Lymphs (auto) 0.82 L 2.24 Total Counted Not Reportable Not Reportable Differential Comment SCANNED COMMENT Diff Path Review Reviewed May foll Platelet Estimate MOD INC Sodium 135 L Potassium 6.2 H* Chloride 104 Carbon Dioxide 19.0 L Anion Gap 12 BUN 121 H* Creatinine 6.46 H Estim Creat Clear Calc 9.52 Est GFR (MDRD) Af Amer 9 L Est GFR (MDRD) Non-Af 8 L BUN/Creatinine Ratio 18.7 Glucose 103 Calcium 9.1 07/28/17 13:55 WBC RBC Hgb Hct MCV MCH MCHC RDW RDW Differential Plt Count MPV Immature Gran % (Auto) Neut % (Auto) Lymph % (Auto) [place] % (Auto) Eos % (Auto) Baso % (Auto) Absolute Neuts (auto) Absolute Lymphs (auto) Total Counted Differential Comment Diff Path Review Platelet Estimate Sodium 136 Potassium 6.0 H* Chloride 104 Carbon Dioxide 19.0 L Anion Gap 13 BUN 128 H* Creatinine 6.92 H Estim Creat Clear Calc 8.89 Est GFR (MDRD) Af Amer 9 L Est GFR (MDRD) Non-Af 7 L BUN/Creatinine Ratio 18.5 Glucose 126 H Calcium 9.2 Clinical Impression(s) from Imaging Studies Lumbar Spine CT 07/27/17 13:11 IMPRESSION: Large soft tissue mass which is incompletely visualized causing destruction of the left iliac bone and partial destruction of the left sacral wing. Electronically Signed: Pro Chery MD at 14:48 EDT Tel [phone], Service support , Pelvis CT 07/27/17 18:33 IMPRESSION: Study limited by patient body habitus and lack of contrast. New extensive lymphadenopathy in the left iliac region, left periaortic region and left inguinal region. This is suspicious for neoplasm. No significant change in the expansile osseous mass in the left hemipelvis when compared with 04/13/2017. Electronically Signed: Kayden Lemos, at 19:28 EDT Tel , Service support , Assessment/Plan Active and Suspected Problems (Last Updated 06/24/17 @ 13:17 by Armida Ortiz) Mass of pelvis (Acute) Left hip pain (Acute) Bilateral hydronephrosis (Acute) 1. Acute renal failure suspect due to obstructive uropathy with history of radiation, chemotherapy in 2017 for cervical cancer with mets. Radiation therapy for brain tumor, last tx 1 wk ago. Creatinine 6.2 on admission with baseline creatinine 1.[address] abdomen and in April 2017 showed left hydronephrosis. Renal US today showed persistent moderate left hydronephrosis with hydroureter and mild rt hydro. Consult urology for nephrostomy tubes or ureteral stents. Place [place] to CD to rule out lower tract obstruction DANIEL. Discussed with the patient and her father at the bedside that she may require dialysis if her renal function does not improve with jefferson or ureteral stent. High BUN likely due to steroids. 2. Acute hyperkalemia due to renal failure, correct with Kayexalate. Needs to relieve obstruction. May need dialysis. 3. Cervical cancer with metastases to lungs and bones brain with recent brain tumor removal June 2017. Underwent chemotherapy and radiation for cervical cancer and recently completed course of radiation last dose 315. 4. Left lower extremity edema venous ultrasound negative for DVT. Suspect due to lymphatic obstruction. 5. Low back pain, left leg pain with swelling history of metastatic bone disease. 6. Discussed with hospitalist and radiologist. consult urology and oncology. 7. Leukocytosis unclear etiology. Hem/onc consult 8. Constipation. see orders
--- NOTE | 2017-07-28 15:42 | ONC.CONS.INP ---
Consult Referring Physician: Dr. Kati Corea Consult Results: Metastatic Cervical cancer with left weakness. Acute renal failure. Subjective Date of Service:: 07/28/17 Chief Complaint: Asked to see patient for Metastatic cervical cancer management. History of Present Illness: 37year-old woman was diagnosed with cervical cancer stage IV on July 01, 2016 with disease involving lungs, mediastinal adenopathy, abdominal adenopathy and destructive lesion in left iliac and left sacral bones. She received palliative radiation therapy to the left iliac bone at [facility] followed by 6 cycles of Avastin cisplatin and Taxol from July 29, 2016 to November 17, 2016 here in [facility]. PET/CT scan on December 15, 2016 showed residual hypermetabolic activity in the uterine cervix so she received radiation therapy to the pelvic area from December 31, 2016 to January 15, 2017. She developed brain metastasis had craniotomy on June 11, 2017 followed by radiation therapy at [facility]. She is now admitted at [facility] with weakness of the left leg associated with pain in the back and incontinence of urine, has had multiple falls at home. She has also been found to have hyperkalemia with creatinine of 6. Past Medical History: Chronic Problems (Last Updated 06/24/17 @ 13:17 by Armida Ortiz) Cervical cancer (Chronic) Cervical cancer, FIGO stage IVB (Chronic) Hypoalbuminemia (Chronic) Depression (Chronic) Overactive bladder (Chronic) Past Medical/Surgical History: Past Medical History (Last Updated 06/24/17 @ 13:17 by Armida Ortiz) Bone deterioration hip d/t mets (Acute) Med Port Placement (Acute) Metastatic bone cancer (Acute) tumor excision left frontal brain (Acute) Maternal Family History: Family History (Last Reviewed 06/24/17 @ 13:16 by Armida Ortiz) Father Arthritis Anxiety Depression Hyperlipidemia Hypertension Mother Diabetes Family History: Diabetes, - Paternal Family History: Family History (Last Reviewed 06/24/17 @ 13:16 by Armida Ortiz) Father Arthritis Anxiety Depression Hyperlipidemia Hypertension Mother Diabetes Family History: High Cholesterol, Hypertension - Social History Smoking Status: Never smoker Alcohol: None Drugs: None Allergies/Adverse Reactions: Allergy/AdvReac Type Severity Reaction Status Date / Time No Known Allergies Allergy Verified 07/27/17 12:54 Home Medications Medication Instructions Recorded Acetaminophen [Tylenol] 500 mg PO Q6H PRN PRN 01/09/18 Dexamethasone [Decadron] 4 mg PO UD 07/27/17 Docusate Sodium [Dok] 100 mg PO DAILY 07/27/17 Hydrocodone/Acetaminophen [[place] 5 mg PO Q6H PRN PRN 07/27/17 5-325 Tablet] Mirabegron [Myrbetriq] 25 mg PO DAILY 07/27/17 Mirtazapine [Remeron] 15 mg PO QHS 07/27/17 Morphine Sulfate [Morphabond ER] 30 mg PO Q8H PRN PRN 07/27/17 Review of Systems Constitutional:: Reports: Weakness - Left leg for 3 weeks., Pain. Denies: Fever, Sweats Cardiovascular:: Denies: Chest pain, Palpitations, Dyspnea on exertion, Orthopnea, PND, Shortness of breath Respiratory: Denies: Cough, Hemoptysis, Shortness of Breath, Wheezing Gastrointestinal:: Denies: Abdominal pain, Nausea, Vomiting, Diarrhea, Constipation, Hematochezia Genitourinary: Reports: Incontinence - of urine. Musculoskeletal:: Denies: Back pain, Myalgia, Arthralgia Vital Signs Height 5 ft 2 in Weight: 152.8 kg Weight in Pounds 336.9 lbs Pulse Ox 95 Temperature 97.6 F Pulse Rate 99 Respiratory Rate 20 Blood Pressure 158/99 Blood Pressure Position Semi-Fowlers - Physical Exam General: Alert, Oriented x3, No apparent distress, - - obese HEENT: Atraumatic, PERRLA, EOMI, Normocephalic Oropharynx:: Dry mucosa Neck:: Supple, Trachea midline. Negative for: JVD, bilateral Cardiac:: Regular rate, Regular rhythm, Normal S1, Normal S2. Negative for: Murmur Lungs: Clear to auscultation, Excusion symmetrical. Negative for: Rhonchi, Wheezes Extremities:: - - weakness left leg Neurological: Cranial nerves II-XII grossly intact Lymphatics:: Negative for: Cervical lymphadenopathy, Supraclavicular lymphadenopathy, Axillary lymphadenopathy Laboratory Data: Laboratory Tests 07/28/17 07/28/17 07/28/17 Range/Units 13:55 13:55 05:15 WBC 34.8 H* (4.4-11.0) K/mm3 RBC 4.03 L (4.2-5.4) M/mm3 Hgb 10.1 L (12.0-15.0) g/dl Hct 33.2 L (37-47) % MCV 82.4 (81-99) fL MCH 25.1 L (27.0-32.0) pg MCHC 30.4 L (32-36) g/gl RDW 17.2 H (11.6-14.6) % RDW Differential 51.8 H (35.1-43.9) fl Plt Count 855 H* (150-450) K/mm3 MPV 9.2 (6.2-12.0) fl Immature Gran % (Auto) 2.100 H (0.0-0.9) % Neut % (Auto) 88.9 H (47-70) % Lymph % (Auto) 6.4 L (19-41) % Mitchell % (Auto) 2.5 (0-10) % Eos % (Auto) 0.0 (0-5) % Baso % (Auto) 0.1 (0-1) % Absolute Neuts (auto) 30.9 H (2.0-7.7) X10^3/uL Absolute Lymphs (auto) 2.24 (0.83-4.51) X10^3/ul Total Counted Not Reportable Differential Comment COMMENT Diff Path Review May foll Platelet Estimate (ADEQ) Sodium 136 135 L (136-145) mmol/L Potassium 6.0 H* 6.2 H* (3.5-5.1) mmol/L Chloride 104 104 (98-107) mmol/L Carbon Dioxide 19.0 L 19.0 L (21.0-32.0) mmol/L Anion Gap 13 12 (5-15) BUN 128 H* 121 H* (7-18) mg/dL Creatinine 6.92 H 6.46 H (0.55-1.02) mg/dL Estim Creat Clear Calc 8.89 9.52 ml/min Est GFR (MDRD) Af Amer 9 L 9 L (>60) mL/min Est GFR (MDRD) Non-Af 7 L 8 L (>60) mL/min BUN/Creatinine Ratio 18.5 18.7 (10-20) RATIO Glucose 126 H 103 (74-106) mg/dL Calcium 9.2 9.1 (8.5-10.1) mg/dL 07/28/17 Range/Units 05:15 WBC 32.1 H* (4.4-11.0) K/mm3 RBC 3.92 L (4.2-5.4) M/mm3 Hgb 10.0 L (12.0-15.0) g/dl Hct 32.5 L (37-47) % MCV 82.9 (81-99) fL MCH 25.5 L (27.0-32.0) pg MCHC 30.8 L (32-36) g/gl RDW 17.3 H (11.6-14.6) % RDW Differential 52.0 H (35.1-43.9) fl Plt Count 808 H* (150-450) K/mm3 MPV 9.1 (6.2-12.0) fl Immature Gran % (Auto) 1.700 H (0.0-0.9) % Neut % (Auto) 90.0 H (47-70) % Lymph % (Auto) 2.6 L (19-41) % Mitchell % (Auto) 5.6 (0-10) % Eos % (Auto) 0.0 (0-5) % Baso % (Auto) 0.1 (0-1) % Absolute Neuts (auto) 28.9 H (2.0-7.7) X10^3/uL Absolute Lymphs (auto) 0.82 L (0.83-4.51) X10^3/ul Total Counted Not Reportable Differential Comment SCANNED Diff Path Review Reviewed Platelet Estimate MOD INC (ADEQ) Sodium (136-145) mmol/L Potassium (3.5-5.1) mmol/L Chloride (98-107) mmol/L Carbon Dioxide (21.0-32.0) mmol/L Anion Gap (5-15) BUN (7-18) mg/dL Creatinine (0.55-1.02) mg/dL Estim Creat Clear Calc ml/min Est GFR (MDRD) Af Amer (>60) mL/min Est GFR (MDRD) Non-Af (>60) mL/min BUN/Creatinine Ratio (10-20) RATIO Glucose (74-106) mg/dL Calcium (8.5-10.1) mg/dL Diagnostic Data: Diagnostic Data Lumbar Spine CT 07/27/17 13:11 IMPRESSION: Large soft tissue mass which is incompletely visualized causing destruction of the left iliac bone and partial destruction of the left sacral wing. Electronically Signed: Pro Chery MD at 14:48 EDT Tel [phone], Service support , Pelvis CT 07/27/17 18:33 IMPRESSION: Study limited by patient body habitus and lack of contrast. New extensive lymphadenopathy in the left iliac region, left periaortic region and left inguinal region. This is suspicious for neoplasm. No significant change in the expansile osseous mass in the left hemipelvis when compared with 04/13/2017. Electronically Signed: Kayden Lemos, at 19:28 EDT Tel , Service support , Assessment and Plan Metastatic Cervical Cancer, now with L lower leg weakness R/O spinal cord metastases. Acute Renal failure, agree with Renal consult and work up. Left leg swelling R/O DVT. Prognosis is poor but depends on sites of progressive disease. Suggestions are to 1. restage disease with CT chest, abdomen. 2. MRI Cervical, thoracic and lumbar spine to rule out spinal metastases. Will follow with further suggestions based on Test results. Medications: Prescriptions This Visit Medication Instructions Recorded Dexamethasone [Decadron] 4 mg PO UD 07/27/17 Docusate Sodium [Dok] 100 mg PO DAILY 07/27/17 Hydrocodone/Acetaminophen [[place] 5 mg PO Q6H PRN PRN 07/27/17 5-325 Tablet] Mirabegron [Myrbetriq] 25 mg PO DAILY 07/27/17 Mirtazapine [Remeron] 15 mg PO QHS 07/27/17 Morphine Sulfate [Morphabond ER] 30 mg PO Q8H PRN PRN 07/27/17 Medications Added to Medication List This Visit Category Date Time Status 0.9% Normal Saline 1,000 ml Med 07/28/17 13:40 Active IV 100 mls/hr Enoxaparin [Lovenox] Med 07/28/17 10:00 Active 40 mg SC DAILY@1000 Primary Care Provider: Cal Tubbs MD Referring Provider:
--- NOTE | 2017-07-28 15:52 | CON.PCM_ITS ---
Consult Referring Physician: Dr. Kati Corea Consult Results: Metastatic Cervical cancer with left weakness. Acute renal failure. Subjective Date of Service:: 07/28/17 Chief Complaint: Asked to see patient for Metastatic cervical cancer management. History of Present Illness: 37year-old woman was diagnosed with cervical cancer stage IV on July 01, 2016 with disease involving lungs, mediastinal adenopathy, abdominal adenopathy and destructive lesion in left iliac and left sacral bones. She received palliative radiation therapy to the left iliac bone at [facility] followed by 6 cycles of Avastin cisplatin and Taxol from July 29, 2016 to November 17, 2016 here in [facility]. PET/CT scan on December 15, 2016 showed residual hypermetabolic activity in the uterine cervix so she received radiation therapy to the pelvic area from December 31, 2016 to January 15, 2017. She developed brain metastasis had craniotomy on June 11, 2017 followed by radiation therapy at [facility]. She is now admitted at [facility] with weakness of the left leg associated with pain in the back and incontinence of urine, has had multiple falls at home. She has also been found to have hyperkalemia with creatinine of 6. Past Medical History: Chronic Problems (Last Updated 06/24/17 @ 13:17 by Armida Ortiz) Cervical cancer (Chronic) Cervical cancer, FIGO stage IVB (Chronic) Hypoalbuminemia (Chronic) Depression (Chronic) Overactive bladder (Chronic) Past Medical/Surgical History: Past Medical History (Last Updated 06/24/17 @ 13:17 by Armiad Ortiz) Bone deterioration hip d/t mets (Acute) Med Port Placement (Acute) Metastatic bone cancer (Acute) tumor excision left frontal brain (Acute) Maternal Family History: Family History (Last Reviewed 06/24/17 @ 13:16 by Armida Ortiz) Father Arthritis Anxiety Depression Hyperlipidemia Hypertension Mother Diabetes Family History: Diabetes, - Paternal Family History: Family History (Last Reviewed 06/24/17 @ 13:16 by Armida Ortiz) Father Arthritis Anxiety Depression Hyperlipidemia Hypertension Mother Diabetes Family History: High Cholesterol, Hypertension - Social History Smoking Status: Never smoker Alcohol: None Drugs: None Allergies/Adverse Reactions: Allergy/AdvReac Type Severity Reaction Status Date / Time No Known Allergies Allergy Verified 07/27/17 12:54 Home Medications Medication Instructions Recorded Acetaminophen [Tylenol] 500 mg PO Q6H PRN PRN 01/09/18 Dexamethasone [Decadron] 4 mg PO UD 07/27/17 Docusate Sodium [Dok] 100 mg PO DAILY 07/27/17 Hydrocodone/Acetaminophen [[place] 5 mg PO Q6H PRN PRN 07/27/17 5-325 Tablet] Mirabegron [Myrbetriq] 25 mg PO DAILY 07/27/17 Mirtazapine [Remeron] 15 mg PO QHS 07/27/17 Morphine Sulfate [Morphabond ER] 30 mg PO Q8H PRN PRN 07/27/17 Review of Systems Constitutional:: Reports: Weakness - Left leg for 3 weeks., Pain. Denies: Fever , Sweats Cardiovascular:: Denies: Chest pain, Palpitations, Dyspnea on exertion, Orthopnea, PND, Shortness of breath Respiratory: Denies: Cough, Hemoptysis, Shortness of Breath, Wheezing Gastrointestinal:: Denies: Abdominal pain, Nausea, Vomiting, Diarrhea, Constipation, Hematochezia Genitourinary: Reports: Incontinence - of urine. Musculoskeletal:: Denies: Back pain, Myalgia, Arthralgia Vital Signs Height 5 ft 2 in Weight: 152.8 kg Weight in Pounds 336.9 lbs Pulse Ox 95 Temperature 97.6 F Pulse Rate 99 Respiratory Rate 20 Blood Pressure 158/99 Blood Pressure Position Semi-Fowlers - Physical Exam General: Alert, Oriented x3, No apparent distress, - - obese HEENT: Atraumatic, PERRLA, EOMI, Normocephalic Oropharynx:: Dry mucosa Neck:: Supple, Trachea midline. Negative for: JVD, bilateral Cardiac:: Regular rate, Regular rhythm, Normal S1, Normal S2. Negative for: Murmur Lungs: Clear to auscultation, Excusion symmetrical. Negative for: Rhonchi, Wheezes Extremities:: - - weakness left leg Neurological: Cranial nerves II-XII grossly intact Lymphatics:: Negative for: Cervical lymphadenopathy, Supraclavicular lymphadenopathy, Axillary lymphadenopathy Laboratory Data: Laboratory Tests 3 07/28/17 07/28/17 07/28/17 Range/Units 13:55 13:55 05:15 WBC 34.8 H* (4.4-11.0) K/mm3 RBC 4.03 L (4.2-5.4) M/mm3 Hgb 10.1 L (12.0-15.0) g/dl Hct 33.2 L (37-47) % MCV 82.4 (81-99) fL MCH 25.1 L (27.0-32.0) pg MCHC 30.4 L (32-36) g/gl RDW 17.2 H (11.6-14.6) % RDW Differential 51.8 H (35.1-43.9) fl Plt Count 855 H* (150-450) K/mm3 MPV 9.2 (6.2-12.0) fl Immature Gran % (Auto) 2.100 H (0.0-0.9) % Neut % (Auto) 88.9 H (47-70) % Lymph % (Auto) 6.4 L (19-41) % [facility] % (Auto) 2.5 (0-10) % Eos % (Auto) 0.0 (0-5) % Baso % (Auto) 0.1 (0-1) % Absolute Neuts (auto) 30.9 H (2.0-7.7) X10^3/uL Absolute Lymphs (auto) 2.24 (0.83-4.51) X10^3/ul Total Counted Not Reportable Differential Comment COMMENT Diff Path Review May foll Platelet Estimate (ADEQ) Sodium 136 135 L (136-145) mmol/L Potassium 6.0 H* 6.2 H* (3.5-5.1) mmol/L Chloride 104 104 (98-107) mmol/L Carbon Dioxide 19.0 L 19.0 L (21.0-32.0) mmol/L Anion Gap 13 12 (5-15) BUN 128 H* 121 H* (7-18) mg/dL Creatinine 6.92 H 6.46 H (0.55-1.02) mg/dL Estim Creat Clear Calc 8.89 9.52 ml/min Est GFR (MDRD) Af Amer 9 L 9 L (>60) mL/min Est GFR (MDRD) Non-Af 7 L 8 L (>60) mL/min BUN/Creatinine Ratio 18.5 18.7 (10-20) RATIO Glucose 126 H 103 (74-106) mg/dL Calcium 9.2 9.1 (8.5-10.1) mg/dL 3 07/28/17 Range/Units 05:15 WBC 32.1 H* (4.4-11.0) K/mm3 RBC 3.92 L (4.2-5.4) M/mm3 Hgb 10.0 L (12.0-15.0) g/dl Hct 32.5 L (37-47) % MCV 82.9 (81-99) fL MCH 25.5 L (27.0-32.0) pg MCHC 30.8 L (32-36) g/gl RDW 17.3 H (11.6-14.6) % RDW Differential 52.0 H (35.1-43.9) fl Plt Count 808 H* (150-450) K/mm3 MPV 9.1 (6.2-12.0) fl Immature Gran % (Auto) 1.700 H (0.0-0.9) % Neut % (Auto) 90.0 H (47-70) % Lymph % (Auto) 2.6 L (19-41) % [place] % (Auto) 5.6 (0-10) % Eos % (Auto) 0.0 (0-5) % Baso % (Auto) 0.1 (0-1) % Absolute Neuts (auto) 28.9 H (2.0-7.7) X10^3/uL Absolute Lymphs (auto) 0.82 L (0.83-4.51) X10^3/ul Total Counted Not Reportable Differential Comment SCANNED Diff Path Review Reviewed Platelet Estimate MOD INC (ADEQ) Sodium (136-145) mmol/L Potassium (3.5-5.1) mmol/L Chloride (98-107) mmol/L Carbon Dioxide (21.0-32.0) mmol/L Anion Gap (5-15) BUN (7-18) mg/dL Creatinine (0.55-1.02) mg/dL Estim Creat Clear Calc ml/min Est GFR (MDRD) Af Amer (>60) mL/min Est GFR (MDRD) Non-Af (>60) mL/min BUN/Creatinine Ratio (10-20) RATIO Glucose (74-106) mg/dL Calcium (8.5-10.1) mg/dL Diagnostic Data: Diagnostic Data Lumbar Spine CT 07/27/17 13:11 IMPRESSION: Large soft tissue mass which is incompletely visualized causing destruction of the left iliac bone and partial destruction of the left sacral wing. Electronically Signed: Pro Chery MD at 14:48 EDT Tel [phone], Service support , Pelvis CT 07/27/17 18:33 IMPRESSION: Study limited by patient body habitus and lack of contrast. New extensive lymphadenopathy in the left iliac region, left periaortic region and left inguinal region. This is suspicious for neoplasm. No significant change in the expansile osseous mass in the left hemipelvis when compared with 04/13/2017. Electronically Signed: Kayden Lemos, at 19:28 EDT Tel , Service support , Assessment and Plan Metastatic Cervical Cancer, now with L lower leg weakness R/O spinal cord metastases. Acute Renal failure, agree with Renal consult and work up. Left leg swelling R/O DVT. Prognosis is poor but depends on sites of progressive disease. Suggestions are to 1. restage disease with CT chest, abdomen. 2. MRI Cervical, thoracic and lumbar spine to rule out spinal metastases. Will follow with further suggestions based on Test results. Medications: Prescriptions This Visit Medication Instructions Recorded Dexamethasone [Decadron] 4 mg PO UD 07/27/17 Docusate Sodium [Dok] 100 mg PO DAILY 07/27/17 Hydrocodone/Acetaminophen [[place] 5 mg PO Q6H PRN PRN 07/27/17 5-325 Tablet] Mirabegron [Myrbetriq] 25 mg PO DAILY 07/27/17 Mirtazapine [Remeron] 15 mg PO QHS 07/27/17 Morphine Sulfate [Morphabond ER] 30 mg PO Q8H PRN PRN 07/27/17 Medications Added to Medication List This Visit Category Date Time Status 0.9% Normal Saline 1,000 ml Med 07/28/17 13:40 Active IV 100 mls/hr Enoxaparin [Lovenox] Med 07/28/17 10:00 Active 40 mg SC DAILY@1000 Primary Care Provider: Cal Tubbs MD Referring Provider:
[2017-07-28 16:00] VITALS: BP 136/85; PULSE 101; RESP 16; TEMP 36.3; O2SAT 98
--- NOTE | 2017-07-28 16:50 | CHAPLAIN ---
Type of Pastoral Visit _x__ Initial Visit ___ Follow-up Visit ___ On-call Visit ___ General Patient Visit ___ Spiritual Assessment ___ Family Conference ___ Bereavement ___ Rapid Response ___ Code Blue ___ Other (describe below) Pastoral Care Referral From _x__ Patient ___ Family ___ Nurse ___ Physician ___ Collection Manager ___ Intensive Care Unit Registered Nurse ___ Other (describe below) Sacrament/Intervention _x__ Active listening ___ Anointing ___ Hindu ___ Bereavement ___ Communion ___ Lizzy exploration ___ ___ Life review _x__ Prayer ___ Reconciliation ___ Sacrament of Sick ___ Supportive presence ___ Wedding ___ Other (describe below) Pastoral Comments patient is hoping for answers to her health concerns; pt speaks of many people praying for her; father of pt is with her; pt being taken for testing very soon;
[2017-07-28] MEDS: Sodium Polystyrene Sulfonate 15 GM/60 ML UDC 30 GM PO ×2 (16:59→22:32)
--- NOTE | 2017-07-28 18:02 | NURSING ---
jefferson catheter attempted to be placed by 3 different RNs, in multiple positions, and in different times, all unsuccessful. Dr Appiah here to evaluate pt.
--- NOTE | 2017-07-28 18:17 | CON.PCM_ITS ---
Problem List (1) Bilateral hydronephrosis Status: Acute Reason for Consult Date of Consultation: 07/28/17 Reason for Consultation: Acute renal failure and bilateral hydronephrosis History of Present Illness: The patient is a 37 year old female who unfortunately has metastatic cervical carcinoma. She is developed bilateral hydronephrosis on a recent CAT scan and has a rising creatinine up to 6.9. She did see a local urologist who is planning to do a cystoscopy and stent placement but she presented to the hospital in acute problems and now has bilateral hydronephrosis and a rising creatinine. Past Medical History Past Medical History (Chronic Problems): Chronic Problems (Last Updated 06/24/17 @ 13:17 by Armida Ortiz) Cervical cancer (Chronic) Cervical cancer, FIGO stage IVB (Chronic) Hypoalbuminemia (Chronic) Depression (Chronic) Overactive bladder (Chronic) Allergies No Known Allergies Allergy (Verified 07/27/17 12:54) Home Medications: Ambulatory Orders Medication Instructions Recorded Acetaminophen [Tylenol] 500 mg PO Q6H PRN PRN 05/19/17 Dexamethasone [Decadron] 4 mg PO UD 07/27/17 Docusate Sodium [Dok] 100 mg PO DAILY 07/27/17 Hydrocodone/Acetaminophen [[place] 5 mg PO Q6H PRN PRN 07/27/17 5-325 Tablet] Mirabegron [Myrbetriq] 25 mg PO DAILY 07/27/17 Mirtazapine [Remeron] 15 mg PO QHS 07/27/17 Morphine Sulfate [Morphabond ER] 30 mg PO Q8H PRN PRN 07/27/17 Surgical History: - Psychiatric History: No pertinent psych hx 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 Denies: Chills, Fever HEENT: Denies: Head Aches, Sinus Congestion, Sinus Drainage Cardiovascular: Denies: Chest Pain, Palpitations Respiratory: Denies: Cough, Shortness of breath at rest, Sputum production Gastrointestinal: Denies: Abdominal Pain, Nausea, Vomiting Genitourinary: Reports: Incontinence. Denies: Dysuria Musculoskeletal: Denies: Joint Pain, Joint Tenderness Skin: Denies: Rash, Wounds Neurological: Denies: Numbness, Tingling, Focal weakness Psychiatric: Denies: Anxiety, Depression, Homicidal Ideations, Suicidal Ideations Hematologic/ Lymphatic: Denies: Easy Bruising, Easy Bleeding Physical Exam - Physical Exam Vital Signs Temp 97.4 F L 07/28/17 16:00 Pulse 101 H 07/28/17 16:00 Resp 16 07/28/17 16:00 BP 136/85 H 07/28/17 16:00 Pulse Ox 98 07/28/17 16:00 Intake & Output 07/26/17 07/27/17 07/28/17 23:59 23:59 23:59 Intake Total 1885 / 188 Balance 1885 / 1885 Weight: 152.8 kg Intake: Oral 1690 / 1690 IV fluid/meds 196 / 196 Other: Number of times incontinent 2 Incontinent Amount Moderate General: Alert, Oriented x3, - - Obese HEENT: Atraumatic Oral: Moist Mucosa Neck: Supple Lungs: Clear to auscultation, Normal air movement Cardiovascular: Regular rate, Regular Rhythm Abdomen: Bowel Sounds Present, Soft, Obese Rectal: Exam deferred Extremities: No clubbing, No cyanosis, No edema, Clubbing Lymphatic: No Cervical, Supraclavicular, or Inguinal Adenopathy Neurological: Cranial nerves II-XII grossly intact Psych/Mental Status: Normal Affect, Appropriate Laboratory Tests Past 24 Hrs 07/28/17 07/28/17 07/28/17 05:15 05:15 13:55 WBC 32.1 H* 34.8 H* RBC 3.92 L 4.03 L Hgb 10.0 L 10.1 L Hct 32.5 L 33.2 L MCV 82.9 82.4 MCH 25.5 L 25.1 L MCHC 30.8 L 30.4 L RDW 17.3 H 17.2 H RDW Differential 52.0 H 51.8 H Plt Count 808 H* 855 H* MPV 9.1 9.2 Immature Gran % (Auto) 1.700 H 2.100 H Neut % (Auto) 90.0 H 88.9 H Lymph % (Auto) 2.6 L 6.4 L [place] % (Auto) 5.6 2.5 Eos % (Auto) 0.0 0.0 Baso % (Auto) 0.1 0.1 Absolute Neuts (auto) 28.9 H 30.9 H Absolute Lymphs (auto) 0.82 L 2.24 Total Counted Not Reportable Not Reportable Differential Comment SCANNED COMMENT Diff Path Review Reviewed May foll Platelet Estimate MOD INC Sodium 135 L Potassium 6.2 H* Chloride 104 Carbon Dioxide 19.0 L Anion Gap 12 BUN 121 H* Creatinine 6.46 H Estim Creat Clear Calc 9.52 Est GFR (MDRD) Af Amer 9 L Est GFR (MDRD) Non-Af 8 L BUN/Creatinine Ratio 18.7 Glucose 103 Calcium 9.1 07/28/17 07/28/17 13:55 13:55 WBC RBC Hgb Hct MCV MCH MCHC RDW RDW Differential Plt Count MPV Immature Gran % (Auto) Neut % (Auto) Lymph % (Auto) [place] % (Auto) Eos % (Auto) Baso % (Auto) Absolute Neuts (auto) Absolute Lymphs (auto) Total Counted Differential Comment Diff Path Review Platelet Estimate Sodium 136 Potassium 6.0 H* 6.0 H* Chloride 104 Carbon Dioxide 19.0 L Anion Gap 13 BUN 128 H* Creatinine 6.92 H Estim Creat Clear Calc 8.89 Est GFR (MDRD) Af Amer 9 L Est GFR (MDRD) Non-Af 7 L BUN/Creatinine Ratio 18.5 Glucose 126 H Calcium 9.2 Assessment/Plan Active and Suspected Problems (Last Updated 06/24/17 @ 13:17 by Armida Ortiz) Mass of pelvis (Acute) Left hip pain (Acute) Bilateral hydronephrosis (Acute) 37-year-old female who has metastatic cervical cancer has been treated with chemotherapy and multiple treatments in the past. She is developed bilateral hydronephrosis at this point plan to taken to the operating room tomorrow for cystoscopy check her bladder and also do bilateral retrogrades in place bilateral stents hopefully this will resolve her obstruction and resolve her elevated creatinine. I leave a catheter after the procedure but we can then remove the catheter once the creatinine normalizes or stabilizes.
[2017-07-28 19:10] LABS: Anion Gap 13 (5-15); BUN 130 mg/dL (7-18); BUN/Creat Ratio 18.6 RATIO (10-20); Chloride 107 mmol/L (98-107); EST Glomerular Filtration Rate 7 mL/min (>60); Est Glom Filt Rate - Afr Amer 9 mL/min (>60); Estimated Creatinine Clearance 8.79 ml/min; Glucose 122 mg/dL (74-106); Sodium Level 139 mmol/L (136-145)
[2017-07-28 19:39] VITALS: BP 137/107; PULSE 103; RESP 20; TEMP 35.4; O2SAT 96; BMI 61.9
--- NOTE | 2017-07-28 19:50 | NURSING ---
Called Deysi, private household worker, to bring up a caude catheter.
--- NOTE | 2017-07-28 22:24 | NURSING ---
Told pt Dr. Duarte wanted the nursing to try again to insert jefferson catheter. Pt is getting UPSET...Said They tried several times on days and it was really painful..Dr. Appiah told me he would put one in during surgery on Thu. Pt is refusing to have nursing staff try again.
[2017-07-28] MEDS: Lactulose 20 GM/30 ML UDC PO (22:31)
[2017-07-28 22:32] LABS: Anion Gap 16 (5-15); BUN 133 mg/dL (7-18); BUN/Creat Ratio 19.3 RATIO (10-20); Calcium,Total 8.9 mg/dL (8.5-10.1); Chloride 107 mmol/L (98-107); Creatinine, Serum 6.88 mg/dL (0.55-1.02); EST Glomerular Filtration Rate 7 mL/min (>60); Est Glom Filt Rate - Afr Amer 9 mL/min (>60); Estimated Creatinine Clearance 8.94 ml/min; Glucose 114 mg/dL (74-106); Potassium 5.9 mmol/L (3.5-5.1); Sodium Level 140 mmol/L (136-145)
[2017-07-28 22:35] VITALS: BP 137/107; PULSE 103; RESP 20; TEMP 36.8; O2SAT 96
[2017-07-28] MEDS: Bisacodyl 5 MG Tablet 10 MG PO (22:37)
[2017-07-28] MEDS: Polyethylene Glycol 3350 17 GM PACKET PO (22:37)
[2017-07-28] MEDS: Docusate Sodium 100 MG Capsule PO (22:37)
[2017-07-28] MEDS: Mirtazapine 15 MG Tablet PO (22:38)
[2017-07-29] VITALS (12 sets, daily range): BP systolic 124–172; BP diastolic 68–123; PULSE 92–108; RESP 16–20; TEMP 36.1–37.1; O2SAT 94–99
[2017-07-29] MEDS: 0.9% Normal Saline 1,000 ML 100 ML IV (02:30)
--- NOTE | 2017-07-29 04:15 | EKG12_ITS ---
Test Reason : PRE-OP Blood Pressure : / mmHG Vent. Rate : 109 BPM Atrial Rate : 109 BPM P-R Int : 148 ms QRS Dur : 084 ms QT Int : 308 ms P-R-T Axes : 055 026 048 degrees QTc Int : 414 ms Sinus tachycardia Otherwise normal ECG No previous ECGs available Confirmed by GOLDIE BISHOP, JULIANNE ([id number]), primer expeditor and drier MICHAELA PADILLA ([id number]) on 08/06/2017 3:59:53 PM Referred By: RACHELLE Confirmed By:JULIANNE AMEZCUA MD
[2017-07-29 06:39] LABS: Hematocrit 32.4 % (37-47); Hemoglobin 10.1 g/dl (12.0-15.0); Mean Corp Hgb Conc 31.2 g/gl (32-36); Mean Corpuscular Hgb 25.8 pg (27.0-32.0); Mean Corpuscular Volume 82.9 fL (81-99); Mean Platelet Vol. 9.6 fl (6.2-12.0); RBC Distribution Width CV 17.2 % (11.6-14.6); RBC Distribution Width SD 50.7 fl (35.1-43.9); Red Blood Count 3.91 M/mm3 (4.2-5.4)
[2017-07-29 06:53] LABS: Scan Indicated on CBC? Y/N YES- FLAGS NOTED
[2017-07-29] MEDS: Nystatin Powder 15gm Bottle 1 APPLIC TOPICAL ×3 (06:53→22:59)
[2017-07-29 06:54] LABS: Platelet Count 890 K/mm3 (150-450)
[2017-07-29 07:01] LABS: Differential Comment SCANNED
[2017-07-29 07:04] LABS: ALB/GLOB Ratio 0.5 RATIO (0.9-2.4); AST(SGOT) 34 U/L (15-37); Alanine Aminotransfer ALT/SGPT 14 U/L (13-56); Albumin, Serum 2.8 g/dL (3.2-5.0); Alkaline Phosphatase 86 U/L (45-117); Anion Gap 15 (5-15); BUN 132 mg/dL (7-18); BUN/Creat Ratio 19.6 RATIO (10-20); Calcium,Total 9.1 mg/dL (8.5-10.1); Chloride 107 mmol/L (98-107); Creatinine, Serum 6.74 mg/dL (0.55-1.02); EST Glomerular Filtration Rate 7 mL/min (>60); Est Glom Filt Rate - Afr Amer 9 mL/min (>60); Estimated Creatinine Clearance 8.71 ml/min; Globulin 5.1 g/dL (2.2-4.2); Glucose 100 mg/dL (74-106); Potassium 5.4 mmol/L (3.5-5.1); Protein, Total 7.9 g/dL (6.4-8.2); Sodium Level 140 mmol/L (136-145)
[2017-07-29] MEDS: Lidocaine Jelly 2% 20 ML Syringe (URO-JET) 20 APPLIC (08:47)
--- NOTE | 2017-07-29 09:08 | OP.PCM_ITS ---
Problem List (1) Bilateral hydronephrosis Status: Acute Report of Operation Date of Procedure: 07/29/17 Pre-Operative Diagnosis: 37-year-old female with bilateral hydronephrosis and obstruction. Unable to Place Marcelino catheter Post-Operative Diagnosis: Same Surgery/Procedure Performed:: Examination under anesthesia attempted cystoscopy Description of Surgical Findings:: 37-year-old female who unfortunately has advanced cervical cancer with metastatic disease present to the hospital acute renal failure nurses tried place a catheter yesterday were unsuccessful. She had a CAT scan only of the upper abdomen that showed bilateral hydronephrosis taken to the operating room today for possible cystoscopy plan to place bilateral stents. Patient is morbidly obese with a BMI of 62. Very difficult position on the operating room table. She was sedated placed in dorsal lithotomy position at extreme number fat rolls in the pelvis area did a bimanual exam she has a really hard fixed mass in the pelvis and has complete obliteration of the urethra no normal anatomy in the pelvis. Appears like she has complete obstruction of her bladder probably from a pelvic mass unable to do cystoscopy unable to find the urethra showed large necrotic tissue in the vaginal area large necrotic tissue in the pelvis area no normally identifiable anatomy. Was not able to get into the bladder. At this point she is can be need to be transferred to a tertiary care center for bilateral nephrostomy tube placements because of her morbid obesity and severe medical problems can be too difficult for our radiologist to place nephrostomy tubes we do not have skilled interventional radiologist at [facility]. I will talk to the hospitalist and recommend we do immediate transfer for bilateral nephrostomy tubes at outside tertiary institution. Patient's currently being awakened from her anesthesia. Type of Anesthesia:: Local MAC Drains: none Estimated Blood Loss (mL): none - Admit VTE Documentation VTE Present on Admission: No VTE Mechan Device Prophylaxis: SCD's
--- NOTE | 2017-07-29 10:06 | DCINST_ITS ---
- Discharge Diagnoses Current Active Problems: Current Active and Chronic Problems (Last Updated 06/24/17 @ 13:17 by Armida Ortiz) Depression (Chronic) Overactive bladder (Chronic) Mass of pelvis (Acute) Left hip pain (Acute) Bilateral hydronephrosis (Acute) Reason(s) for Visit for Discharge Instructions: Left leg pain You will use the following diet at home:: Renal (restricted protein/sodium) Your food should be the consistency of: Regular Your liquids should be the consistency of: Regular/Thin Instructions: ED Back Care Tips Allergies/Adverse Reactions: Allergies No Known Allergies Allergy (Verified 07/27/17 12:54) Medications to take at Discharge Acetaminophen [Tylenol] 500 mg PO Q6H PRN PRN 05/19/17 Dexamethasone [Decadron] 4 mg PO UD 07/27/17 Docusate Sodium [Dok] 100 mg PO DAILY 07/27/17 Hydrocodone/Acetaminophen [[place] 5-325 Tablet] 5 mg PO Q6H PRN PRN 07/27/17 Mirabegron [Myrbetriq] 25 mg PO DAILY 07/27/17 Mirtazapine [Remeron] 15 mg PO QHS 07/27/17 Morphine Sulfate [Morphabond ER] 30 mg PO Q8H PRN PRN 07/27/17 Primary Care Physician: Gio Tubbs MD [Primary Care Provider] - Proposed Discharge Date: 07/29/17
[2017-07-29] MEDS: Docusate Sodium 100 MG Capsule PO ×2 (10:51→22:58)
--- NOTE | 2017-07-29 12:21 | NURSING ---
Called [facility] for bed status update. Still no beds available at this time for transfer.
--- NOTE | 2017-07-29 13:04 | PCM.PN.REN ---
Patient Problems: Active and Suspected Problems (Last Updated 06/24/17 @ 13:17 by Armida Ortiz) Mass of pelvis (Acute) Left hip pain (Acute) Bilateral hydronephrosis (Acute) Subjective: Pt return from OR. Unable to place nephrostomy tubes or jefferson catheter. Creatinine remains elevated. Potassium improved to 5.4 today. Still with no BM despite multiple medications given for constipation. She has wheezing but no shortness of breath, nausea, or vomiting. She has continued knee, leg pain on left asking for more pain medication. Discussed with hospitalist and family members at bedside regarding prognosis of the whole situation, chances of recovering renal function with PNT. Overall prognosis is poor due to advanced cervical cancer complicated by acute renal failure within less than 2 months. Plans were to transfer to tertiary center for PNT but cannot guarantee outcome. Discussed option of dialysis. Pt poor candidate due to terminal condition, advanced cancer with mets with continued need for pain control, difficulty with mobility due to pain. Family to consider hospice. - Physical Exam General: Alert, Oriented x3, Cooperative, No apparent distress HEENT: PERRLA, EOMI Oral: Moist Mucosa Neck: Supple, - - upper airway wheeze Lungs: - - upper airway wheeze Cardiovascular: Regular rate Abdomen: Bowel Sounds Present, Soft, Non Tender, Obese Extremities: Edema - left leg Skin: No rashes Musculoskeletal: No Muscle Wasting Psych/Mental Status: Normal Affect, Appropriate, Alert and oriented to time, place, person, mood and affect Vital Signs Temp Pulse Resp BP Pulse Ox 98.2 F 100 18 148/74 H 99 07/29/17 11:13 07/29/17 11:13 07/29/17 11:13 07/29/17 11:13 07/29/17 11:13 Oxygen Delivery Method Room Air Weight: 152.8 kg Body Mass Index (BMI) 61.9 Intake and Output for Last 24 Hours 07/27/17 07/28/17 07/29/17 23:59 23:59 23:59 Intake Total 1886 / 1886 0356 / 3766 Balance 1886 / 1886 9626 / 7421 Laboratory Tests Past 24 Hrs 07/28/17 07/28/17 07/28/17 05:15 13:55 13:55 WBC 34.8 H* RBC 4.03 L Hgb 10.1 L Hct 33.2 L MCV 82.4 MCH 25.1 L MCHC 30.4 L RDW 17.2 H RDW Differential 51.8 H Plt Count 855 H* MPV 9.2 Immature Gran % (Auto) 2.100 H Neut % (Auto) 88.9 H Lymph % (Auto) 6.4 L Deuel % (Auto) 2.5 Eos % (Auto) 0.0 Baso % (Auto) 0.1 Absolute Neuts (auto) 30.9 H Absolute Lymphs (auto) 2.24 Total Counted Not Reportable Differential Comment COMMENT Diff Path Review Reviewed September foll Sodium 136 Potassium 6.0 H* Chloride 104 Carbon Dioxide 19.0 L Anion Gap 13 BUN 128 H* Creatinine 6.92 H Estim Creat Clear Calc 8.89 Est GFR (MDRD) Af Amer 9 L Est GFR (MDRD) Non-Af 7 L BUN/Creatinine Ratio 18.5 Glucose 126 H Calcium 9.2 Total Bilirubin AST ALT Alkaline Phosphatase Total Protein Albumin Globulin Albumin/Globulin Ratio 07/28/17 07/28/17 07/28/17 13:55 18:37 21:50 WBC RBC Hgb Hct MCV MCH MCHC RDW RDW Differential Plt Count MPV Immature Gran % (Auto) Neut % (Auto) Lymph % (Auto) Deuel % (Auto) Eos % (Auto) Baso % (Auto) Absolute Neuts (auto) Absolute Lymphs (auto) Total Counted Differential Comment Diff Path Review Sodium 139 140 Potassium 6.0 H* 6.0 H* 5.9 H Chloride 107 107 Carbon Dioxide 19.0 L 17.0 L Anion Gap 13 16 H BUN 130 H* 133 H* Creatinine 7.00 H 6.88 H Estim Creat Clear Calc 8.79 8.94 Est GFR (MDRD) Af Amer 9 L 9 L Est GFR (MDRD) Non-Af 7 L 7 L BUN/Creatinine Ratio 18.6 19.3 Glucose 122 H 114 H Calcium 9.0 8.9 Total Bilirubin AST ALT Alkaline Phosphatase Total Protein Albumin Globulin Albumin/Globulin Ratio 07/29/17 07/29/17 05:44 05:44 WBC 35.0 H* RBC 3.91 L Hgb 10.1 L Hct 32.4 L MCV 82.9 MCH 25.8 L MCHC 31.2 L RDW 17.2 H RDW Differential 50.7 H Plt Count 890 H* MPV 9.6 Immature Gran % (Auto) Neut % (Auto) Lymph % (Auto) Deuel % (Auto) Eos % (Auto) Baso % (Auto) Absolute Neuts (auto) Absolute Lymphs (auto) Total Counted Differential Comment SCANNED Diff Path Review September Sodium 140 Potassium 5.4 H Chloride 107 Carbon Dioxide 18.0 L Anion Gap 15 BUN 132 H* Creatinine 6.74 H Estim Creat Clear Calc 8.71 Est GFR (MDRD) Af Amer 9 L Est GFR (MDRD) Non-Af 7 L BUN/Creatinine Ratio 19.6 Glucose 100 Calcium 9.1 Total Bilirubin 0.40 AST 34 ALT 14 Alkaline Phosphatase 86 Total Protein 7.9 Albumin 2.8 L Globulin 5.1 H Albumin/Globulin Ratio 0.5 L Medical Necessity - Tobacco Use Smoking Status: Never smoker Assessment/Plan Active and Suspected Problems (Last Updated 06/24/17 @ 13:17 by Armida Ortiz) Mass of pelvis (Acute) Left hip pain (Acute) Bilateral hydronephrosis (Acute) 1. Acute renal failure due to obstructive uropathy with history of radiation, chemotherapy in 2016 for cervical cancer with mets. now with large pelvic mass. Unable to place Jefferson catheter, nephrostomy tubes or ureteral stents by urology in OR today. Plans to transfer to tertiary care center vs hospice. Discussed with family prognosis. Not a dialysis candidate due to advanced, metastatic disease, chronic pain with poor pain control. 2. Acute hyperkalemia due to renal failure, corrected with Kayexalate. 3. Cervical cancer with metastases to lungs and bones brain with recent brain tumor removal June 2017. Underwent chemotherapy and radiation for cervical cancer and recently completed course of radiation last dose 07/23. Now with large pelvic mass with lymphadenopathy, leg swelling, renal failure. 4. Leukocytosis hem/onc following.
--- NOTE | 2017-07-29 13:11 | NURSING ---
Spoke with father of patient, patient and family requesting to speak with hospice. Dr. Carmita saravia and NANCY Stokes will call referral.
--- NOTE | 2017-07-29 13:18 | CASEMGMT ---
Social Work Note Pt's father to front end application developer requesting that [facility] in [place] be consulted. Educate to process and what meeting with hospice entails. Confirms that they would like to follow through with hospice referral. Placed call to [facility] in [place]. Spoke with the admissions nurse and updated on pt's status. Initial referral faxed and wine specialist and SW to meet with pt and family at [phone]. Face to face with the pt, her brother and her father to update on meeting time. Emotional support provided, and pt and family decline needs at this time. Pt made aware that SW is available if needs or questions arise. SW to continue to follow and assist with discharge planning. Plan: TBD. Tammie Cifuentes, CARTRIDGE FEEDER, FRENCH DRAWER
--- NOTE | 2017-07-29 14:52 | CASEMGMT ---
Social Work Note Updated by Jessica with [facility] that the family would like to proceed with hospice and is interested in placement at [facility]. Placed call to [facility] and [facility] for Marisa at inquiring if insurance would still cover placement or if this is a private expense for the family. Will await a return phone call to confirm. SW to continue to follow and assist with discharge planning. Tammie Cifuentes, BI CONSULTANT, STATISTICAL SECRETARY
--- NOTE | 2017-07-29 14:53 | PCM.DC.SUM ---
Discharge Date and Diagnosis Date of Admission: 07/27/17 Date of Discharge: 07/29/17 - Primary Discharge Diagnosis Active and Suspected Problems (Last Updated 06/24/17 @ 13:17 by Armida Ortiz) 1. Stage IV cervical cancer with metastasis to brain, lungs, mediastinal adenopathy, abdominal adenopathy and destructive lesion in the left iliac and left sacral bones. 2. Acute renal failure due to obstructive uropathy secondary to pelvic mass 3. Hyperkalemia secondary to renal failure 4. Thrombocytosis 5. Leukocytosis - Secondary Discharge Diagnosis Chronic Problems (Last Updated 06/24/17 @ 13:17 by Armida Ortiz) Cervical cancer (Chronic) Cervical cancer, FIGO stage IVB (Chronic) Hypoalbuminemia (Chronic) Depression (Chronic) Overactive bladder (Chronic) Hospital Course and Treatment Imaging Results: Diagnostic Data Lumbar Spine CT 07/27/17 13:11 IMPRESSION: Large soft tissue mass which is incompletely visualized causing destruction of the left iliac bone and partial destruction of the left sacral wing. Electronically Signed: Pro Chery MD at 14:48 EDT Tel [phone], Service support , Pelvis CT 07/27/17 18:33 IMPRESSION: Study limited by patient body habitus and lack of contrast. New extensive lymphadenopathy in the left iliac region, left periaortic region and left inguinal region. This is suspicious for neoplasm. No significant change in the expansile osseous mass in the left hemipelvis when compared with 04/13/2017. Electronically Signed: Kayden Lemos, at 19:28 EDT Tel , Service support , Renal Ultrasound 07/28/17 13:45 IMPRESSION: Study limited by patient body habitus. Mild right hydronephrosis and moderate left hydronephrosis with no cause identified on this study. Electronically Signed: Kayden Lemos, at 16:18 EDT Tel , Service support , Abdomen CT 07/28/17 15:13 IMPRESSION: Significantly limited study. New retroperitoneal lymphadenopathy which is suspicious for neoplasm. New pulmonary nodules at the lung bases with the largest measuring 3 cm in the left infrahilar region. This is highly suspicious for neoplasm. Further evaluation with a chest CT with contrast is recommended. The visualized bowel demonstrates no evidence of obstruction. Large amount stool in the colon, consistent with constipation. Electronically Signed: Kayden Lemos, at 17:16 EDT Tel , Service support , Dr. Appiah- Urology Dr. Duarte- Nephrology Dr. Gross- Oncology Hospice Operations: None Procedures: - - Attempted cystoscopy Summary of Care Provided: Patient is a 37-year-old female admitted 07/27/2017 due to left leg pain, inability to ambulate and frequent falls. Duplex ultrasound negative for DVTs left lower extremity. CT of pelvis showed new extensive lymphadenopathy in the left iliac region, left periaortic region and left inguinal region. Suspicious for neoplasm. No significant change in the expansile osseous mass in the left hemipelvis when compared to 04/23/2017 imaging. Patient follows with Dr. Gross for stage IV cervical cancer with metastasis to brain, lungs, mediastinal adenopathy, abdominal adenopathy and destructive lesion in the left iliac and left sacral bones. She underwent palliative radiation with last treatment 07/23/2017. Dr. Gross consulted during admission. She was found to have acute renal failure with associated hyperkalemia. Dr. Duarte consulted for acute renal failure due to obstructive uropathy secondary to pelvic mass. Cystoscopy was attempted with Dr. Appiah which was unable to be completed and showed complete obstruction of bladder from pelvic mass, large necrotic tissue in the vaginal/pelvic area. It was recommended that patient be transferred to a tertiary care center for bilateral nephrostomy tubes. Patient and family discussed treatment options and decided on hospice services. Patient seen and examined prior to discharge. Denies pain. Lungs diminished, wheezes. Heart rate regular in rate and rhythm. Abdomen soft, nontender. Neuro grossly intact. This patient was seen by MIRIAN Kaufman under the supervision of Dr. Vizcarra. Discharge Diet: No Restrictions Discharge Activity: No Restrictions Home Medications: Medications to take at Discharge Acetaminophen [Tylenol] 500 mg PO Q6H PRN PRN 05/19/17 Docusate Sodium [Dok] 100 mg PO DAILY 07/27/17 Mirabegron [Myrbetriq] 25 mg PO DAILY 07/27/17 Mirtazapine [Remeron] 15 mg PO QHS 07/27/17 Docusate Sodium [Colace] 100 mg PO BID capsule 07/29/17 Hydrocodone/Acetaminophen [[place] 5-325 Tablet] 5 mg PO Q6H PRN PRN 3 Days #12 tab 07/29/17 Lorazepam Intensol [Ativan Intensol] 1 mg PO TID PRN #2 bottle 07/29/17 Morphine Sulfate [Morphabond ER] 30 mg PO Q8H PRN PRN 5 Days #15 tab.er.12h 07/29/17 Ondansetron [Zofran Odt] 4 mg PO Q8H PRN PRN #15 tab 07/29/17 Following Prescrptions Were Given to Patient: Hydrocodone/Acetaminophen [[place] 5-325 Tablet] 5 mg PO Q6H PRN PRN 3 Days #12 tab PRN Reason: Pain Morphine Sulfate [Morphabond ER] 30 mg PO Q8H PRN PRN 5 Days #15 tab.er.12h PRN Reason: Pain Ondansetron [Zofran Odt] 4 mg PO Q8H PRN PRN #15 tab PRN Reason: Nausea Lorazepam Intensol [Ativan Intensol] 1 mg PO TID PRN #2 bottle PRN Reason: Anxiety Primary Care Physician: Gio Tubbs MD [Primary Care Provider] - Patient Instructions: ED Back Care Tips Disposition: [facility] facility - With Hospice Minutes spent on discharge:: 35 Patient Condition:: Guarded Medical Necessity - Tobacco Use Smoking Status: Never smoker Meaningful Use Info Meaningful Use Diagnoses (Choose all that apply): None applicable
--- NOTE | 2017-07-29 15:07 | DS.PCM_ITS ---
Discharge Date and Diagnosis Date of Admission: 07/27/17 Date of Discharge: 07/29/17 - Primary Discharge Diagnosis Active and Suspected Problems (Last Updated 06/24/17 @ 13:17 by Armida Ortiz) 1. Stage IV cervical cancer with metastasis to brain, lungs, mediastinal adenopathy, abdominal adenopathy and destructive lesion in the left iliac and left sacral bones. 2. Acute renal failure due to obstructive uropathy secondary to pelvic mass 3. Hyperkalemia secondary to renal failure 4. Thrombocytosis 5. Leukocytosis - Secondary Discharge Diagnosis Chronic Problems (Last Updated 06/24/17 @ 13:17 by Armida Ortiz) Cervical cancer (Chronic) Cervical cancer, FIGO stage IVB (Chronic) Hypoalbuminemia (Chronic) Depression (Chronic) Overactive bladder (Chronic) Hospital Course and Treatment Imaging Results: Diagnostic Data Lumbar Spine CT 07/27/17 13:11 IMPRESSION: Large soft tissue mass which is incompletely visualized causing destruction of the left iliac bone and partial destruction of the left sacral wing. Electronically Signed: Pro Chery MD at 14:48 EDT Tel [phone], Service support , Pelvis CT 07/27/17 18:33 IMPRESSION: Study limited by patient body habitus and lack of contrast. New extensive lymphadenopathy in the left iliac region, left periaortic region and left inguinal region. This is suspicious for neoplasm. No significant change in the expansile osseous mass in the left hemipelvis when compared with 04/13/2017. Electronically Signed: Kayden Lemos, at 19:28 EDT Tel , Service support , Renal Ultrasound 07/28/17 13:45 IMPRESSION: Study limited by patient body habitus. Mild right hydronephrosis and moderate left hydronephrosis with no cause identified on this study. Electronically Signed: Kayden Lemos, at 16:18 EDT Tel , Service support , Abdomen CT 07/28/17 15:13 IMPRESSION: Significantly limited study. New retroperitoneal lymphadenopathy which is suspicious for neoplasm. New pulmonary nodules at the lung bases with the largest measuring 3 cm in the left infrahilar region. This is highly suspicious for neoplasm. Further evaluation with a chest CT with contrast is recommended. The visualized bowel demonstrates no evidence of obstruction. Large amount stool in the colon, consistent with constipation. Electronically Signed: Kayden Lemos, at 17:16 EDT Tel , Service support , Dr. Appiah- Urology Dr. Duarte- Nephrology Dr. Gross- Oncology Hospice Operations: None Procedures: - - Attempted cystoscopy Summary of Care Provided: Patient is a 37-year-old female admitted 07/27/2017 due to left leg pain, inability to ambulate and frequent falls. Duplex ultrasound negative for DVTs left lower extremity. CT of pelvis showed new extensive lymphadenopathy in the left iliac region, left periaortic region and left inguinal region. Suspicious for neoplasm. No significant change in the expansile osseous mass in the left hemipelvis when compared to 04/23/2017 imaging. Patient follows with Dr. Gross for stage IV cervical cancer with metastasis to brain, lungs, mediastinal adenopathy, abdominal adenopathy and destructive lesion in the left iliac and left sacral bones. She underwent palliative radiation with last treatment 2017. Dr. Gross consulted during admission. She was found to have acute renal failure with associated hyperkalemia. Dr. Duarte consulted for acute renal failure due to obstructive uropathy secondary to pelvic mass. Cystoscopy was attempted with Dr. Appiah which was unable to be completed and showed complete obstruction of bladder from pelvic mass, large necrotic tissue in the vaginal/ pelvic area. It was recommended that patient be transferred to a tertiary care center for bilateral nephrostomy tubes. Patient and family discussed treatment options and decided on hospice services. Patient seen and examined prior to discharge. Denies pain. Lungs diminished, wheezes. Heart rate regular in rate and rhythm. Abdomen soft, nontender. Neuro grossly intact. This patient was seen by MIRIAN Kaufman under the supervision of Dr. Vizcarra. Discharge Diet: No Restrictions Discharge Activity: No Restrictions Home Medications: Medications to take at Discharge Acetaminophen [Tylenol] 500 mg PO Q6H PRN PRN 05/19/17 Docusate Sodium [Dok] 100 mg PO DAILY 07/27/17 Mirabegron [Myrbetriq] 25 mg PO DAILY 07/27/17 Mirtazapine [Remeron] 15 mg PO QHS 07/27/17 Docusate Sodium [Colace] 100 mg PO BID capsule 07/29/17 Hydrocodone/Acetaminophen [[place] 5-325 Tablet] 5 mg PO Q6H PRN PRN 3 Days #12 tab 07/29/17 Lorazepam Intensol [Ativan Intensol] 1 mg PO TID PRN #2 bottle 07/29/17 Morphine Sulfate [Morphabond ER] 30 mg PO Q8H PRN PRN 5 Days #15 tab.er.12h Ondansetron [Zofran Odt] 4 mg PO Q8H PRN PRN #15 tab 07/29/17 Following Prescrptions Were Given to Patient: Hydrocodone/Acetaminophen [[place] 5-325 Tablet] 5 mg PO Q6H PRN PRN 3 Days #12 tab PRN Reason: Pain Morphine Sulfate [Morphabond ER] 30 mg PO Q8H PRN PRN 5 Days #15 tab.er.12h PRN Reason: Pain Ondansetron [Zofran Odt] 4 mg PO Q8H PRN PRN #15 tab PRN Reason: Nausea Lorazepam Intensol [Ativan Intensol] 1 mg PO TID PRN #2 bottle PRN Reason: Anxiety Primary Care Physician: Gio Tubbs MD [Primary Care Provider] - Patient Instructions: ED Back Care Tips Disposition: Long Term facility - With Hospice Minutes spent on discharge:: 35 Patient Condition:: Guarded Medical Necessity - Tobacco Use Smoking Status: Never smoker Meaningful Use Info Meaningful Use Diagnoses (Choose all that apply): None applicable
[2017-07-29] MEDS: 0.9% NaCl Peripheral Flush Adult/Peds IV ×2 (15:46→17:44)
--- NOTE | 2017-07-29 16:12 | PCM.EXTCARCO ---
- Diet 07/29/17 13:30 Diet: Renal: 60 gm protein Is pt able to select menu?: Yes - Routine Orders/Code Status Code Status: DNRCC - Wound(s) RT LOWER BACK Wound Type: OPEN SCRATCH - Problem/Diagnosis (1) Cervical cancer Status: Chronic Current Visit: No (2) Cervical cancer, FIGO stage IVB Status: Chronic Current Visit: No (3) Hypoalbuminemia Status: Chronic Current Visit: No (4) Hydronephrosis Status: Resolved Current Visit: No (5) Brain metastases Status: Resolved Current Visit: No (6) Depression Status: Chronic Current Visit: No (7) Overactive bladder Status: Chronic Current Visit: No - Allergies/Procedures Done in Hospital Allergies/Adverse Reactions: Allergies No Known Allergies Allergy (Verified 07/27/17 12:54) Procedures: None - Type of Care/Length of Stay Estimated LOS: Convalescent Care Less Than 30 days Type of Care Needed: Skilled Rehab Potential: Poor Prognosis: Poor - Additional Orders/Day of Discharge H&P will serve as current which was dated: 07/27/17 Day of Discharge: 07/29/17 - Follow Up Care Primary Care Physician: Gio Tubbs MD [Primary Care Provider] -
--- NOTE | 2017-07-29 16:15 | CASEMGMT ---
Social Work Note Confirmed that [facility] can still accept and we are awaiting pre-cert. Updated family and BOILER ASSISTANT OPERATOR and do not anticipate discharge until tomorrow. Plan: [facility] pending pre-cert. Tammie Cifuentes, COMMERCIAL LINES SALES EXECUTIVE, [employer] REDEVELOPMENT SITE MANAGER
--- NOTE | 2017-07-29 16:23 | PN_ITS ---
<Tammie Villela - Last Filed: 07/29/17 16:23> Subjective: Patient seen and examined. Options have been discussed with patient and she has decided on hospice services. She denies pain at this time. Cystoscopy was attempted and unable to be performed due to pelvic mass. Family at bedside who is supportive of patient's decision. Pre-CERT pending to SNF with hospice. - Physical Exam General: Alert, Oriented x3, Cooperative Neck: Supple, No JVD, Negative Carotid Bruits Lungs: Diminished, Wheezes Cardiovascular: Regular rate, Regular Rhythm, Normal S1, Normal S2, No murmurs Abdomen: Bowel Sounds Present, Soft, Non Tender, Non-Distended, Obese Extremities: No clubbing, No cyanosis, No edema, Capillary Refill Less than 3 Seconds Skin: No rashes, No breakdown Neurological: Cranial nerves II-XII grossly intact, Neuro grossly intact Psych/Mental Status: Normal Affect, Appropriate Vital Signs Temp Pulse Resp BP Pulse Ox 98.2 F 100 18 148/74 H 99 07/29/17 11:13 07/29/17 11:13 07/29/17 11:13 07/29/17 11:13 07/29/17 11:13 Oxygen Delivery Method Room Air Weight: 152.8 kg Body Mass Index (BMI) 61.9 Intake and Output for Last 24 Hours 07/27/17 07/28/17 07/29/17 23:59 23:59 23:59 Intake Total 436 / 1886 3766 / 3766 Balance 436 / 1886 3766 / 3766 Laboratory Tests Past 24 Hrs 07/28/17 07/28/17 07/28/17 13:55 18:37 21:50 WBC RBC Hgb Hct MCV MCH MCHC RDW RDW Differential Plt Count MPV Differential Comment Diff Path Review Sodium 139 140 Potassium 6.0 H* 6.0 H* 5.9 H Chloride 107 107 Carbon Dioxide 19.0 L 17.0 L Anion Gap 13 16 H BUN 130 H* 133 H* Creatinine 7.00 H 6.88 H Estim Creat Clear Calc 8.79 8.94 Est GFR (MDRD) Af Amer 9 L 9 L Est GFR (MDRD) Non-Af 7 L 7 L BUN/Creatinine Ratio 18.6 19.3 Glucose 122 H 114 H Calcium 9.0 8.9 Total Bilirubin AST ALT Alkaline Phosphatase Total Protein Albumin Globulin Albumin/Globulin Ratio 07/29/17 07/29/17 05:44 05:44 WBC 35.0 H* RBC 3.91 L Hgb 10.1 L Hct 32.4 L MCV 82.9 MCH 25.8 L MCHC 31.2 L RDW 17.2 H RDW Differential 50.7 H Plt Count 890 H* MPV 9.6 Differential Comment SCANNED Diff Path Review May foll Sodium 140 Potassium 5.4 H Chloride 107 Carbon Dioxide 18.0 L Anion Gap 15 BUN 132 H* Creatinine 6.74 H Estim Creat Clear Calc 8.71 Est GFR (MDRD) Af Amer 9 L Est GFR (MDRD) Non-Af 7 L BUN/Creatinine Ratio 19.6 Glucose 100 Calcium 9.1 Total Bilirubin 0.40 AST 34 ALT 14 Alkaline Phosphatase 86 Total Protein 7.9 Albumin 2.8 L Globulin 5.1 H Albumin/Globulin Ratio 0.5 L Medical Necessity - Tobacco Use Smoking Status: Never smoker Assessment/Plan 1. Stage IV cervical cancer with metastasis to brain, lungs, mediastinal adenopathy, abdominal adenopathy and destructive lesion in the left iliac and left sacral bones. Patient has decided on hospice. Maintain comfort. Continue as needed pain regimen, as needed Ativan, as needed Zofran. Pre-CERT pending to SNF with hospice. 2. Acute renal failure due to obstructive uropathy secondary to pelvic mass- nephrology and urology consulted. Cystoscopy was attempted today but was not able to be completed due to pelvic mass. Tertiary care transfer was recommended for bilateral nephrostomy tubes and patient declined. 3. Hyperkalemia secondary to renal failure 4. Thrombocytosis 5. Leukocytosis 6. Overactive bladder 7. Depression 8. Candidiasis of abdominal/groin DVT prophylaxis-not indicated due to hospice status. Discharge planning: SNF with hospice pending pre-CERT. This patient was seen by MIRIAN Kaufman under the supervision of Dr. Vizcarra. <Kati Vizcarra - Last Filed: 07/29/17 17:38> - Physical Exam Vital Signs Temp Pulse Resp BP Pulse Ox 98.1 F 105 H 18 124/70 H 99 07/29/17 16:30 07/29/17 16:30 07/29/17 16:30 07/29/17 16:30 07/29/17 16:30 Oxygen Delivery Method Room Air Weight: 152.8 kg Body Mass Index (BMI) 61.9 Intake and Output for Last 24 Hours 07/27/17 07/28/17 07/29/17 23:59 23:59 23:59 Intake Total 436 / 1886 3766 / 3766 Balance 436 / 1886 3766 / 3766 Laboratory Tests Past 24 Hrs 07/28/17 07/28/17 07/28/17 13:55 18:37 21:50 WBC RBC Hgb Hct MCV MCH MCHC RDW RDW Differential Plt Count MPV Differential Comment Diff Path Review Sodium 139 140 Potassium 6.0 H* 6.0 H* 5.9 H Chloride 107 107 Carbon Dioxide 19.0 L 17.0 L Anion Gap 13 16 H BUN 130 H* 133 H* Creatinine 7.00 H 6.88 H Estim Creat Clear Calc 8.79 8.94 Est GFR (MDRD) Af Amer 9 L 9 L Est GFR (MDRD) Non-Af 7 L 7 L BUN/Creatinine Ratio 18.6 19.3 Glucose 122 H 114 H Calcium 9.0 8.9 Total Bilirubin AST ALT Alkaline Phosphatase Total Protein Albumin Globulin Albumin/Globulin Ratio 07/29/17 07/29/17 05:44 05:44 WBC 35.0 H* RBC 3.91 L Hgb 10.1 L Hct 32.4 L MCV 82.9 MCH 25.8 L MCHC 31.2 L RDW 17.2 H RDW Differential 50.7 H Plt Count 890 H* MPV 9.6 Differential Comment SCANNED Diff Path Review May foll Sodium 140 Potassium 5.4 H Chloride 107 Carbon Dioxide 18.0 L Anion Gap 15 BUN 132 H* Creatinine 6.74 H Estim Creat Clear Calc 8.71 Est GFR (MDRD) Af Amer 9 L Est GFR (MDRD) Non-Af 7 L BUN/Creatinine Ratio 19.6 Glucose 100 Calcium 9.1 Total Bilirubin 0.40 AST 34 ALT 14 Alkaline Phosphatase 86 Total Protein 7.9 Albumin 2.8 L Globulin 5.1 H Albumin/Globulin Ratio 0.5 L Assessment/Plan Patient was seen and examined independently and also again in consultation with nurse practitioner, Tammie Villela. Agree with above interval history, physical exam and assessment and plan. Aware of events intraoperatively with Dr. Dickinson was unable to do cystoscopy successfully because of tumor burden in her pelvis. Patient denies any pain or nausea or vomiting. She is alert oriented ?3. Patient after her anesthesia had worn off was made aware findings intraoperatively. Her father seem to be aware of the findings as this was discussed by Dr. Appiah. Patient wanted transfer to [facility] for nephrostomy tubes. Transfer line was called and patient was accepted but we were told that they had 100% full capacity and we had to wait for a bed. Patient opted to go to [place] but then later on the father wanted to know more about hospice. Information about hospice were given to patient and patient and her family in consultation opted for hospice. [facility] finally called back to confirm that they had a bed but patient's did not want to be transferred. Hospice will be consulted. Code Visit Inpatient E&M: 24901 Init Hosp L3
[2017-07-29] MEDS: Bisacodyl 5 MG Tablet 10 MG PO (16:45)
[2017-07-29] MEDS: HYDROcodone Bitartrate/Apap 5/325 Tablet PO (16:45)
[2017-07-29] MEDS: Morphine 4 MG/ML Syringe IV (17:43)
[2017-07-29] MEDS: LORazepam 2 MG/ML Syringe IV (17:44)
[2017-07-29] MEDS: Mirtazapine 15 MG Tablet PO (22:58)
--- NOTE | 2017-07-29 23:00 | NURSING ---
PT INC OF B&B, BATH GIVEN, CASIE CARE GIVEN, PILLOW CASES PLACED BETWEEN THE ABD SKIN FOLDS. MUCH TLC AND CARE GIVEN. PT CONFUSED, ALERT TO PERSON ONLY, DID NOT KNOW WHERE SHE WAS, TH[facility]HT [facility] FAM[facility]. PT REPOSITIONED AND PULLED UP IN BED. REMAINS PLEASANT
[2017-07-30 02:00] VITALS: BP 122/84; PULSE 110; RESP 16; TEMP 36.5; O2SAT 95
[2017-07-30 04:02] VITALS: PULSE 110; RESP 16; O2SAT 96
[2017-07-30] MEDS: Nystatin Powder 15gm Bottle 1 APPLIC TOPICAL ×2 (05:45→16:21)
[2017-07-30 07:50] VITALS: BP 148/92; PULSE 110; RESP 20; TEMP 36.3; O2SAT 96
--- NOTE | 2017-07-30 08:55 | CASEMGMT ---
Social Work Note Placed call to Marisa at [facility] to check on status of pre-cert. Left vm as Marisa was unavailable and will await a return phone call with determination. Updated clinicals faxed. Plan: [facility] pending pre-cert with hospice services. Tammie Cifuentes, RATE MARKER, INTERNIST
--- NOTE | 2017-07-30 10:07 | CASEMGMT ---
Social Work Note Placed call to Marisa at [facility] who states she has not heard regarding pre-cert and will notify SW once she does. Claims to have received updated clinicals. Family updated. SW to continue to follow and assist with discharge planning. Plan: [facility] pending pre-cert. Tammie Cifuentes, PULL OUT OPERATOR, ADMINISTRATIVE RECEPTIONIST
[2017-07-30] MEDS: Menthol/Lanolin/Calamine/Znox 113 GM Tube 1 APPLIC TOPICAL ×2 (10:32→16:21)
[2017-07-30 10:53] LABS: Pathologist Review Reviewed
[2017-07-30 10:56] LABS: Pathologist Review Reviewed
--- NOTE | 2017-07-30 12:33 | CASEMGMT ---
Social Work Note Placed call to [facility]. Inquired via if there was a contact at [place] to reach out to as we are still awaiting pre-cert and family would like to urgently have pt placed with hospice services initiated. Will continue to follow and assist with discharge planning. Tammie Cifuentes, BARREL CAP SETTER, MEDICAL INSURANCE CLAIMS PROCESSOR
[2017-07-30] MEDS: LORazepam 2 MG/ML Syringe IV (13:56)
[2017-07-30] MEDS: 0.9% NaCl Peripheral Flush Adult/Peds IV (13:56)
--- NOTE | 2017-07-30 14:14 | PCM.PN.HOSP ---
Subjective: Patient was seen and examined. Waiting on precert for transfer to group home facility. Eyes any pain or fever or chills. Appears comfortable. Family at the bedside. Objective: Physical Exam General: Alert, Oriented x3, Cooperative, morbidly obese Neck: Supple Cardiovascular: Regular rate, Regular Rhythm, Normal S1, Normal S2, No murmurs Abdomen: Bowel Sounds Present, Soft, Non Tender, Non-Distended, Obese Extremities: Left leg is swollen more than edema, Capillary Refill Less than 3 Seconds Skin: No rashes, No breakdown Neurological: Cranial nerves II-XII grossly intact, Neuro grossly intact Psych/Mental Status: Normal Affect, Appropriate Vitals/I&O's: Vital Signs Temp Pulse Resp BP Pulse Ox 97.4 F L 110 H 20 H 148/92 H 96 07/30/17 07:50 07/30/17 07:50 07/30/17 07:50 07/30/17 07:50 07/30/17 07:50 Oxygen Delivery Method Room Air Weight: 152.8 kg Body Mass Index (BMI) 61.9 Intake and Output for Last 24 Hours 07/28/17 07/29/17 07/30/17 23:59 23:59 23:59 Intake Total 436 / 1886 4716 / 4716 500 / 500 Balance 436 / 1886 4716 / 4716 500 / 500 Laboratory Results 07/28/17 13:55: Diff Path Review Reviewed 07/29/17 05:44: Diff Path Review Reviewed Current Medications Acetaminophen (Tylenol) 500 mg PO Q6H PRN PRN PRN Reason: PAIN Hydrocodone Bitart/Acetaminophen ([place] 5mg-325mg) 1 tablet PO Q6H PRN PRN PRN Reason: PAIN Last Admin: 07/29/17 16:45 Dose: 1 tablet Calamine/Phenol (Calmoseptine Ointment) 1 applic TOPICAL TID ONEYDA PRN Reason: Protocol Last Admin: 07/30/17 10:32 Dose: 1 applicatio Dexamethasone (Decadron) 4 mg PO DAILY [facility] PRN Reason: Taper Stop: 08/08/17 09:59 Last Admin: 07/30/17 10:32 Dose: 4 mg Docusate Sodium (Colace) 100 mg PO BID [facility] Last Admin: 07/30/17 10:32 Dose: Not Given Hydralazine HCl (Apresoline Iv) 10 mg IV Q4H PRN PRN PRN Reason: BLOOD PRESSURE ELEVATION Hydromorphone HCl (Dilaudid Iv) 1 mg IV Q2H PRN PRN PRN Reason: SEVERE PAIN (6-10/10) Lorazepam (Ativan) 2 mg IV Q4H PRN PRN PRN Reason: ANXIETY Last Admin: 07/30/17 13:56 Dose: 2 mg Mirtazapine (Remeron) 15 mg PO QHS ONEYDA Last Admin: 07/29/17 22:58 Dose: 15 mg Morphine Sulfate (Ms Contin) 30 mg PO Q8H PRN PRN PRN Reason: PAIN Last Admin: 07/29/17 12:37 Dose: 30 mg Nystatin (Mycostatin Powder) 1 applic TOPICAL TID ONEYDA PRN Reason: Protocol Last Admin: 07/30/17 05:45 Dose: 1 applicatio Sodium Chloride () 5 - 30 ml IV UD PRN PRN Reason: SALINE FLUSH Last Admin: 07/30/17 13:56 Dose: 20 ml Medical Necessity - Tobacco Use Smoking Status: Never smoker Assessment/Plan 1. Acute Kidney injury secondary to obstructive uropathy from stage IV cervical cancer, not amendable to cystoscopy with ureteral stent, possible silk procedure by urologist, patient decided on hospice and did not want transfer to tertiary care facility for nephrostomy tubes. 2. Stage IV cervical cancer with metastasis to brain, lungs, mediastinal adenopathy, abdominal adenopathy and destructive lesion in the left iliac and left sacral bones. Awaiting transfer to group home facility for hospice. Pain is controlled 3. Hyperkalemia secondary to renal failure, potassium was improved as of yesterday but no more blood draws as patient is in hospice now 4. Morbid Obesity 5. Disposition: Discharge to group home facility for hospice when bed is available Code Visit Inpatient E&M: 37490 Subs Hosp L2
--- NOTE | 2017-07-30 14:27 | PN_ITS ---
Subjective: Patient was seen and examined. Waiting on precert for transfer to assisted facility. Eyes any pain or fever or chills. Appears comfortable. Family at the bedside. Objective: Physical Exam General: Alert, Oriented x3, Cooperative, morbidly obese Neck: Supple Cardiovascular: Regular rate, Regular Rhythm, Normal S1, Normal S2, No murmurs Abdomen: Bowel Sounds Present, Soft, Non Tender, Non-Distended, Obese Extremities: Left leg is swollen more than edema, Capillary Refill Less than 3 Seconds Skin: No rashes, No breakdown Neurological: Cranial nerves II-XII grossly intact, Neuro grossly intact Psych/Mental Status: Normal Affect, Appropriate Vitals/I&O's: Vital Signs Temp Pulse Resp BP Pulse Ox 97.4 F L 110 H 20 H 148/92 H 96 07/30/17 07:50 07/30/17 07:50 07/30/17 07:50 07/30/17 07:50 07/30/17 07:50 Oxygen Delivery Method Room Air Weight: 152.8 kg Body Mass Index (BMI) 61.9 Intake and Output for Last 24 Hours 07/28/17 07/29/17 07/30/17 23:59 23:59 23:59 Intake Total 436 / 1886 4716 / 4716 500 / 500 Balance 436 / 1886 4716 / 4716 500 / 500 Laboratory Results 07/28/17 13:55: Diff Path Review Reviewed 07/29/17 05:44: Diff Path Review Reviewed Current Medications Acetaminophen (Tylenol) 500 mg PO Q6H PRN PRN PRN Reason: PAIN Hydrocodone Bitart/Acetaminophen ([place] 5mg-325mg) 1 tablet PO Q6H PRN PRN PRN Reason: PAIN Last Admin: 07/29/17 16:45 Dose: 1 tablet Calamine/Phenol (Calmoseptine Ointment) 1 applic TOPICAL TID ONEYDA PRN Reason: Protocol Last Admin: 07/30/17 10:32 Dose: 1 applicatio Dexamethasone (Decadron) 4 mg PO DAILY [facility] PRN Reason: Taper Stop: 08/08/17 09:59 Last Admin: 07/30/17 10:32 Dose: 4 mg Docusate Sodium (Colace) 100 mg PO BID [facility] Last Admin: 07/30/17 10:32 Dose: Not Given Hydralazine HCl (Apresoline Iv) 10 mg IV Q4H PRN PRN PRN Reason: BLOOD PRESSURE ELEVATION Hydromorphone HCl (Dilaudid Iv) 1 mg IV Q2H PRN PRN PRN Reason: SEVERE PAIN (6-10/10) Lorazepam (Ativan) 2 mg IV Q4H PRN PRN PRN Reason: ANXIETY Last Admin: 07/30/17 13:56 Dose: 2 mg Mirtazapine (Remeron) 15 mg PO QHS ONEYDA Last Admin: 07/29/17 22:58 Dose: 15 mg Morphine Sulfate (Ms Contin) 30 mg PO Q8H PRN PRN PRN Reason: PAIN Last Admin: 07/29/17 12:37 Dose: 30 mg Nystatin (Mycostatin Powder) 1 applic TOPICAL TID ONEYDA PRN Reason: Protocol Last Admin: 07/30/17 05:45 Dose: 1 applicatio Sodium Chloride () 5 - 30 ml IV UD PRN PRN Reason: SALINE FLUSH Last Admin: 07/30/17 13:56 Dose: 20 ml Medical Necessity - Tobacco Use Smoking Status: Never smoker Assessment/Plan 1. Acute Kidney injury secondary to obstructive uropathy from stage IV cervical cancer, not amendable to cystoscopy with ureteral stent, possible silk procedure by urologist, patient decided on hospice and did not want transfer to tertiary care facility for nephrostomy tubes. 2. Stage IV cervical cancer with metastasis to brain, lungs, mediastinal adenopathy, abdominal adenopathy and destructive lesion in the left iliac and left sacral bones. Awaiting transfer to assisted facility for hospice. Pain is controlled 3. Hyperkalemia secondary to renal failure, potassium was improved as of yesterday but no more blood draws as patient is in hospice now 4. Morbid Obesity 5. Disposition: Discharge to assisted facility for hospice when bed is available Code Visit Inpatient E&M: 28500 Subs Hosp L2
[2017-07-30 16:00] VITALS: PULSE 118; O2SAT 91
--- NOTE | 2017-07-30 16:15 | CASEMGMT ---
Social Work Note PAS/RR submitted in the [facility]. Copies on the chart and SNF packet. Transfer summary, medlist and scripts faxed to SNF. Copies on chart and originals in SNF packet. Transport setup through [facility] via cot at 1715. Notified facility, RN and family. Plan: [facility]. Hospice to follow. PAS/RR submitted in [facility]. Transport setup via cot for 1715. Tammie Cifuentes, FIBER HEEL PIECE SHAPER, REFRIGERATION MECHANIC HELPER
[2017-07-30] MEDS: Calcium Carbonate 500 MG Tablet 1000 MG PO (16:48)
[2017-07-30 17:18] VITALS: BP 128/91; PULSE 110; RESP 20; TEMP 36.7; O2SAT 91
[2017-07-30 17:27] VITALS: BP 128/91
== END 2017-07-30 17:40 | disposition hospice, inpatient (51) | DRG 366 ==
LOC: ED 16:57 → MS3 17:57
PROVIDERS: Internal Medicine Nephrology; Nurse Practitioner Family; Urology; Emergency Provider Emergency Medicine; Family Provider Family Medicine; PCP Family Medicine; Visit Provider Internal Medicine
PROC: 8E0UXY7 Examination of Female Reproductive System (ICD-10-PCS; principal; 2017-07-29 07:20)
DX: C53.9 Malignant neoplasm of cervix uteri, unspecified (principal); N17.9 Acute kidney failure, unspecified; C78.02 Secondary malignant neoplasm of left lung; E66.01 Morbid (severe) obesity due to excess calories; C79.31 Secondary malignant neoplasm of brain; C78.01 Secondary malignant neoplasm of right lung; E87.5 Hyperkalemia; N13.30 Unspecified hydronephrosis; C79.51 Secondary malignant neoplasm of bone; E88.09 Other disorders of plasma-protein metabolism, not elsewhere classified; B37.2 Candidiasis of skin and nail; D47.3 Essential (hemorrhagic) thrombocythemia; D72.829 Elevated white blood cell count, unspecified; R59.0 Localized enlarged lymph nodes; F32.9 Major depressive disorder, single episode, unspecified; N32.81 Overactive bladder; Z92.3 Personal history of irradiation; Z68.44 Body mass index [BMI] 60.0-69.9, adult; Z92.21 Personal history of antineoplastic chemotherapy
CPT/HCPCS: 36415; 72131; 72192; 74150; 76770; 80048; 80053; 84132; 85025; 85027; 93005; 93971; 97161; 97166; J3010; J7030; A4216; C1769